=== PATIENT | female | born 1930 | race Caucasian/White ===

== ENCOUNTER 2017-05-24 21:32 | Emergency (ER) | payer MEDICARE, OTHER ==
[~2017-05-24] VITALS: Ht 162.6 cm; Wt 65.0 kg
[2017-05-24 21:57] VITALS: BP 136/71; PULSE 78; RESP 16; TEMP 98.5; O2SAT 99
--- NOTE | 2017-05-24 22:14 | PD ---
HPI Chief Complaint: Psychiatric Symptoms Time Seen by Provider: 22:10 Travel History International Travel<30 days: No Contact w/Intl Traveler<30days: No Traveled to known affect area: No History of Present Illness HPI Patient comes in under [place] act by police after reportedly running away from home, becoming combative and stating that she just wanted to . Patient has a history of dementia denies any complaints or concerns at this time. Patient' s caregivers at bedside currently and reports that they had to use a different caregiver as her normal caregiver had to check on patient's who is in a different hospital with [facility]. Caregiver states patient apparently became confused and combative with the replacement caregiver who then called the police. Reports patient is at her baseline currently. Denies anything making symptoms better or worse, caregiver feels the patient having an unknown caregiver may have caused this behavior. PFSH Past Medical History Alzheimer's Disease: Yes ?: Not Social History Alcohol Use: No Tobacco Use: No Substance Use: No Allergies-Medications (Allergen,Severity, Reaction): Coded Allergies: Penicillin (Verified Allergy, Unknown, 05/24/17) Reported Meds & Prescriptions Reported Meds & Active Scripts Active Reported Namzaric (Memantine-Donepezil) 28-10 Mg Cap 1 Cap PO HS Review of Systems Except as stated in HPI: all other systems reviewed are Neg Physical Exam Narrative GENERAL: Well-developed, well nourished, in no acute distress, and non-ill appearing. SKIN: Focused skin assessment warm and dry. HEAD: Atraumatic. Normocephalic. EYES: Pupils equal and round. EOMI. No scleral icterus. No injection or drainage. ENT: No nasal bleeding or discharge. Mucous membranes pink and moist. NECK: Trachea midline. Supple. No nuclear rigidity. CARDIOVASCULAR: Regular rate and rhythm. Grade 1/6 murmur appreciated. RESPIRATORY: No accessory muscle use. No respiratory distress. Clear to auscultation. Breath sounds equal bilaterally. GASTROINTESTINAL: Abdomen soft, non-tender, nondistended, and no guarding. Hepatic and splenic margins not palpable. No pulsatile mass. MUSCULOSKELETAL: No obvious deformities. No clubbing. No cyanosis. No edema. Full range of motion. NEUROLOGICAL: Awake and alert. No obvious cranial nerve deficits. Motor grossly within normal limits. Normal speech. PSYCHIATRIC: Appropriate mood and affect; insight and judgment normal. Data Data Last Documented VS Vital Signs Date Time Temp Pulse Resp B/P Pulse Ox O2 Delivery O2 Flow Rate FiO2 05/24/17 23:47 78 16 121/52 99 05/24/17 21:57 98.5 Orders Complete Blood Count With Diff (05/24/17 22:09) Comprehensive Metabolic Panel (05/24/17 22:09) Urinalysis - C+S If Indicated (05/24/17 22:09) Drug Screen, Random Urine (05/24/17 22:09) Labs Laboratory Tests Test 05/24/17 05/24/17 22:25 22:33 Urine Color YELLOW Urine Turbidity CLEAR Urine pH 6.5 Urine Specific [place] 1.014 Urine Protein TRACE mg/dL Urine Glucose (UA) NEG mg/dL Urine Ketones NEG mg/dL Urine Occult Blood NEG Urine Nitrite NEG Urine Bilirubin NEG Urine Urobilinogen LESS THAN 2.0 MG/DL Urine Leukocyte Esterase MOD Urine RBC 1 /hpf Urine WBC 3 /hpf Urine Squamous Epithelial 1 /hpf Cells Urine Bacteria RARE /hpf Urine Hyaline Casts 1 /lpf Urine Mucus FEW /lpf Microscopic Urinalysis Comment CULT NOT INDICATED Urine Opiates Screen NEG Urine Barbiturates Screen NEG Urine Amphetamines Screen NEG Urine Benzodiazepines Screen NEG Urine Cocaine Screen NEG Urine Cannabinoids Screen NEG White Blood Count 9.3 TH/MM3 Red Blood Count 4.95 MIL/MM3 Hemoglobin 14.4 GM/DL Hematocrit 43.5 % Mean Corpuscular Volume 87.9 FL Mean Corpuscular Hemoglobin 29.0 PG Mean Corpuscular Hemoglobin 33.0 % Concent Red Cell Distribution Width 14.1 % Platelet Count 196 TH/MM3 Mean Platelet Volume 7.7 FL Neutrophils (%) (Auto) 74.6 % Lymphocytes (%) (Auto) 18.4 % Monocytes (%) (Auto) 5.7 % Eosinophils (%) (Auto) 0.4 % Basophils (%) (Auto) 0.9 % Neutrophils # (Auto) 6.9 TH/MM3 Lymphocytes # (Auto) 1.7 TH/MM3 Monocytes # (Auto) 0.5 TH/MM3 Eosinophils # (Auto) 0.0 TH/MM3 Basophils # (Auto) 0.1 TH/MM3 CBC Comment DIFF FINAL Differential Comment Sodium Level 141 MEQ/L Potassium Level 3.5 MEQ/L Chloride Level 104 MEQ/L Carbon Dioxide Level 28.8 MEQ/L Anion Gap 8 MEQ/L Blood Urea Nitrogen 13 MG/DL Creatinine 1.14 MG/DL Estimat Glomerular Filtration 45 ML/MIN Rate Random Glucose 97 MG/DL Calcium Level 8.6 MG/DL Total Bilirubin 0.6 MG/DL Aspartate Amino Transf 24 U/L (AST/SGOT) Alanine Aminotransferase 24 U/L (ALT/SGPT) Alkaline Phosphatase 58 U/L Total Protein 6.9 GM/DL Albumin 3.4 GM/DL MDM Medical Decision Making Medical Screen Exam Complete: Yes Emergency Medical Condition: Yes Differential Diagnosis Homicidal, suicidal, dementia, electrolyte abnormality, UTI, other Narrative Course Patient in no obvious distress upon re-evaluation. All pertinent laboratory result(s) discussed with patient's caregiver. Patient was seen and examined by Dr. Arroyo who lifted the Barragan act. Any questions/concerns in reference to patient diagnosis/condition discussed and clarified prior to patient's discharge. Reinforced sheer importance of close follow up with patient's primary physician or primary care clinic. Instructed patient to return to ED immediately, if symptoms return/worsen. Pt caregiver showed understanding of above instructions. Further instructions and recommendations were detailed in discharge paperwork. Pt ambulated without difficulty out of ED at discharge. Diagnosis Primary Impression: Alzheimer disease Qualified Code: G30.8 - Alzheimer's dementia with behavioral disturbance, unspecified timing of dementia onset Patient Instructions: Alzheimer Disease (GEN), General Instructions Additional Instructions: Follow-up with your primary care physician next week for reevaluation. Return to the emergency department if symptoms get worse. Disposition: 01 DISCHARGE HOME Condition: Stable Percy Pretty May 24, 2017 22:14
[2017-05-24] MEDS ORDERED: MEMA1CAP2 PO (22:26)
[2017-05-24 22:49] LABS: AUTOMATED NEUTROPHIL # 6.9 TH/MM3 (1.8-7.7); BASOPHIL # 0.1 TH/MM3 (0-0.2); BASOPHIL % 0.9 % (0.0-2.0); EOSINOPHIL % 0.4 % (0.0-4.0); HEMATOCRIT 43.5 % (35.0-46.0); HEMO FLAGS DIFF FINAL; LYMPH % 18.4 % (9.0-44.0); LYMPHOCYTE # 1.7 TH/MM3 (1.0-4.8); MEAN CELL VOLUME 87.9 FL (80.0-100.0); MONO % 5.7 % (0.0-8.0); NEUT % 74.6 % (16.0-70.0); PLATELET COUNT 196 TH/MM3 (150-450); RED BLOOD COUNT 4.95 MIL/MM3 (4.00-5.30); RED CELL DISTRIBUTION WIDTH 14.1 % (11.6-17.2); WHITE BLOOD COUNT 9.3 TH/MM3 (4.0-11.0)
[2017-05-24 23:04] LABS: BACTERIA, URINE RARE /hpf; BLOOD, URINE NEG (NEG); COMMENT (UR) CULT NOT INDICATED; CULTURE IF INDICATED CULT NOT INDICATED; GLUCOSE,URINE NEG (NEG); HYALINE CAST, URINE 1 /lpf (RARE); KETONE, URINE NEG (NEG); MUCUS URINE FEW /lpf (OCC); NITRITE,URINE NEG (NEG); PH, URINE 6.5 (5.0-8.5); SQUAMOUS EPITHELIAL CELL URINE 1 /hpf (0-5); URINE COLOR YELLOW (YELLW/STRAW)
[2017-05-24 23:12] LABS: AMPHETAMINE, URINE NEG (NEG); BARBITURATES, URINE NEG (NEG); COCAINE, URINE NEG (NEG)
[2017-05-24 23:27] LABS: ALT (GPT) 24 U/L (10-53); ANION GAP 8 MEQ/L (5-15); AST (GOT) 24 U/L (15-37); BICARBONATE 28.8 MEQ/L (21.0-32.0); BLOOD UREA NITROGEN 13 MG/DL (7-18); CHLORIDE 104 MEQ/L (98-107); GLOMERULAR FILTRATION RATE 45 ML/MIN (>89); POTASSIUM 3.5 MEQ/L (3.5-5.1); SODIUM (NA) 141 MEQ/L (136-145)
[2017-05-24 23:29] LABS: ALKALINE PHOSPHATASE 58 U/L (45-117); TOTAL BILIRUBIN ADULT 0.6 MG/DL (0.2-1.0)
--- NOTE | 2017-05-24 23:30 | PD ---
Physical Exam Narrative I, Dr. Arroyo, have reviewed the advance practice practitioner's documentation and am in agreement, met with the patient face to face, made the diagnosis, and the medical decision making was done by me. *My assessment and Findings: Dementia vs. delirium 86yo F with history of dementia was brought in under Barragan Act because she had escaped out of the garage and made statement such as "Just let me go so I can ". Upon further investigation, I found out that she had a new customer liaison come today because her old customer liaison was with her who is in another hospital with [facility]. Pt is currently with her normal customer liaison who she is familiar with and is calm and cooperative. She states that she wants to go home and does not want to hurt herself or others. Denies any complaints. Her routine customer liaison is here with her and states she is at her normal mental status. Labs reviewed, no leukocytosis. CMP unremarkable. UA negative. Utox negative. My physical exam is normal. Pt denies any suicidal ideation or homicidal ideation. There was a reason for patient to become agitated today since she had a new customer liaison that she was unfamiliar with. I believe that it would be detrimental to keep the patient overnight in a unfamiliar place and since she has her normal customer liaison with her, she will be better off at home. Will lift barragan act. Data Data Last Documented VS Vital Signs Date Time Temp Pulse Resp B/P Pulse Ox O2 Delivery O2 Flow Rate FiO2 05/24/17 22:00 20 05/24/17 21:57 98.5 78 136/71 99 Orders Complete Blood Count With Diff (05/24/17 22:09) Comprehensive Metabolic Panel (05/24/17 22:09) Urinalysis - C+S If Indicated (05/24/17 22:09) Drug Screen, Random Urine (05/24/17 22:09) Labs Laboratory Tests Test 05/24/17 05/24/17 22:25 22:33 Urine Color YELLOW Urine Turbidity CLEAR Urine pH 6.5 Urine Specific [place] 1.014 Urine Protein TRACE mg/dL Urine Glucose (UA) NEG mg/dL Urine Ketones NEG mg/dL Urine Occult Blood NEG Urine Nitrite NEG Urine Bilirubin NEG Urine Urobilinogen LESS THAN 2.0 MG/DL Urine Leukocyte Esterase MOD Urine RBC 1 /hpf Urine WBC 3 /hpf Urine Squamous Epithelial 1 /hpf Cells Urine Bacteria RARE /hpf Urine Hyaline Casts 1 /lpf Urine Mucus FEW /lpf Microscopic Urinalysis Comment CULT NOT INDICATED Urine Opiates Screen NEG Urine Barbiturates Screen NEG Urine Amphetamines Screen NEG Urine Benzodiazepines Screen NEG Urine Cocaine Screen NEG Urine Cannabinoids Screen NEG White Blood Count 9.3 TH/MM3 Red Blood Count 4.95 MIL/MM3 Hemoglobin 14.4 GM/DL Hematocrit 43.5 % Mean Corpuscular Volume 87.9 FL Mean Corpuscular Hemoglobin 29.0 PG Mean Corpuscular Hemoglobin 33.0 % Concent Red Cell Distribution Width 14.1 % Platelet Count 196 TH/MM3 Mean Platelet Volume 7.7 FL Neutrophils (%) (Auto) 74.6 % Lymphocytes (%) (Auto) 18.4 % Monocytes (%) (Auto) 5.7 % Eosinophils (%) (Auto) 0.4 % Basophils (%) (Auto) 0.9 % Neutrophils # (Auto) 6.9 TH/MM3 Lymphocytes # (Auto) 1.7 TH/MM3 Monocytes # (Auto) 0.5 TH/MM3 Eosinophils # (Auto) 0.0 TH/MM3 Basophils # (Auto) 0.1 TH/MM3 CBC Comment DIFF FINAL Differential Comment Sodium Level 141 MEQ/L Potassium Level 3.5 MEQ/L Chloride Level 104 MEQ/L Carbon Dioxide Level 28.8 MEQ/L Anion Gap 8 MEQ/L Blood Urea Nitrogen 13 MG/DL Creatinine 1.14 MG/DL Estimat Glomerular Filtration 45 ML/MIN Rate Random Glucose 97 MG/DL Calcium Level 8.6 MG/DL Total Bilirubin 0.6 MG/DL Aspartate Amino Transf 24 U/L (AST/SGOT) Alanine Aminotransferase 24 U/L (ALT/SGPT) Alkaline Phosphatase 58 U/L Total Protein 6.9 GM/DL Albumin 3.4 GM/DL [facility] Supervised Visit with CHERY: Yes Diagnosis Primary Impression: Dementia Qualified Code: F03.91 - Dementia with behavioral disturbance, unspecified dementia type Darline Arroyo DO May 24, 2017 23:30
[2017-05-24 23:47] VITALS: BP 121/52
== END 2017-05-25 00:23 | disposition home or self-care (01) ==
LOC: NEPD 21:32
DX: F02.81 Dementia in other diseases classified elsewhere, unspecified severity, with behavioral disturbance (principal); G30.9 Alzheimer's disease, unspecified; Z88.0 Allergy status to penicillin
CPT/HCPCS: 80053; 80307; 81001; 85025; 99283

== ENCOUNTER 2017-10-15 09:48 | Inpatient (IN) | payer MEDICARE, OTHER ==
[~2017-10-15] VITALS: Ht 167.6 cm; Wt 56.6 kg
[~2017-10-15 09:48] MED LIST: MEMA1CAP2 PO
[2017-10-15 09:57] VITALS: BP 148/66; PULSE 69; RESP 20; TEMP 98.6; O2SAT 99
[2017-10-15 10:37] LABS: BASOPHIL % 0.5 % (0.0-2.0); EOSINOPHIL # 0.1 TH/MM3 (0-0.4); EOSINOPHIL % 0.9 % (0.0-4.0); HEMATOCRIT 43.1 % (35.0-46.0); HEMOGLOBIN 14.5 GM/DL (11.6-15.3); LYMPH % 25.7 % (9.0-44.0); LYMPHOCYTE # 1.9 TH/MM3 (1.0-4.8); MEAN CELL VOLUME 88.8 FL (80.0-100.0); MEAN CORPUSCULAR HEMOGLOBIN 29.9 PG (27.0-34.0); MEAN CORPUSCULAR HGB CONC 33.6 % (32.0-36.0); MEAN PLATELET VOLUME 8.5 FL (7.0-11.0); MONO % 4.7 % (0.0-8.0); MONOCYTE # 0.3 TH/MM3 (0-0.9); NEUT % 68.2 % (16.0-70.0); PLATELET COUNT 171 TH/MM3 (150-450); RED BLOOD COUNT 4.86 MIL/MM3 (4.00-5.30); RED CELL DISTRIBUTION WIDTH 14.1 % (11.6-17.2); WHITE BLOOD COUNT 7.3 TH/MM3 (4.0-11.0)
[2017-10-15 10:53] LABS: BLOOD UREA NITROGEN 17 MG/DL (7-18); CHLORIDE 108 MEQ/L (98-107); CREATININE 1.02 MG/DL (0.50-1.00); GLOMERULAR FILTRATION RATE 51 ML/MIN (>89); GLUCOSE,RANDOM 101 MG/DL (74-106); SODIUM (NA) 140 MEQ/L (136-145)
--- NOTE | 2017-10-15 12:09 | PD ---
HPI Chief Complaint: Psychiatric Symptoms Time Seen by Provider: 09:57 Travel History International Travel<30 days: No Contact w/Intl Traveler<30days: No Traveled to known affect area: No History of Present Illness HPI The patient is 87 years old. She arrives a Barr[place] act from [place]. She was evidently combative with visiting home nurses. The police were called to bring her to the ER as they felt that she was in imminent risk to her own safety. In the ER the patient has no complaints and states that she "did nothing wrong." The care provider, power of traffic law attorney, arrives and explains that the patient has been "escaping" from her house. Evidently she was walking [place] highway [place] one point. She has been following with a neurologist and a primary care provider. Up until recently the family has been refusing antipsychotics. The patient has been noncompliant antipsychotics for the last 2 - 3 days. PFSH Past Medical History Medical History: Unable to Obtain Alzheimer's Disease: Yes Dementia: Yes Diminished Hearing: No Tetanus Vaccination: Unknown ?: Not Past Surgical History Surgical History: Unable to Obtain Social History Alcohol Use: No Tobacco Use: No Substance Use: No Allergies-Medications (Allergen,Severity, Reaction): Coded Allergies: penicillin G (Unverified Allergy, Unknown, 10/15/17) Reported Meds & Prescriptions Reported Meds & Active Scripts Active Reported Namzaric (Memantine-Donepezil) 28-10 Mg Cap 1 Cap PO HS Review of Systems Except as stated in HPI: all other systems reviewed are Neg General / Constitutional: No: Fever Cardiovascular: No: Chest Pain or Discomfort Physical Exam Narrative GENERAL: GENERAL: The patient is 87 years old. She is well-nourished well- developed, mildly agitated SKIN: Focused skin assessment warm/dry. HEAD: Atraumatic. Normocephalic. EYES: Pupils equal and round. No scleral icterus. No injection or drainage. ENT: No nasal bleeding or discharge. Mucous membranes pink and moist. NECK: Trachea midline. No JVD. CARDIOVASCULAR: There is no arrhythmia. The rate is approximately 70 RESPIRATORY: No accessory muscle use. Clear to auscultation. Breath sounds equal bilaterally. GASTROINTESTINAL: Abdomen soft, non-tender, nondistended. Hepatic and splenic margins not palpable. MUSCULOSKELETAL: No obvious deformities. No clubbing. No cyanosis. No edema. NEUROLOGICAL: Recent memory is impaired. She states she does not know where she is. Cranial nerves are normal. The patient is ambulatory. PSYCHIATRIC: Somewhat uncooperative. Denies arm attention towards herself or others. Data Data Last Documented VS Vital Signs Date Time Temp Pulse Resp B/P (MAP) Pulse Ox O2 Delivery O2 Flow Rate FiO2 10/15/17 09:57 98.6 69 20 148/66 (93) 99 Orders Orders Complete Blood Count With Diff (10/15/17 10:12) Basic Metabolic Panel (Bmp) (10/15/17 10:12) Urinalysis - C+S If Indicated (10/15/17 10:12) Drug Screen, Random Urine (10/15/17 10:12) Alcohol (Ethanol) (10/15/17 10:12) Psych Screen (10/15/17 12:18) Lorazepam Inj (Ativan Inj) (10/15/17 12:30) Labs Laboratory Tests Test 10/15/17 10:10 White Blood Count 7.3 TH/MM3 Red Blood Count 4.86 MIL/MM3 Hemoglobin 14.5 GM/DL Hematocrit 43.1 % Mean Corpuscular Volume 88.8 FL Mean Corpuscular Hemoglobin 29.9 PG Mean Corpuscular Hemoglobin Concent 33.6 % Red Cell Distribution Width 14.1 % Platelet Count 171 TH/MM3 Mean Platelet Volume 8.5 FL Neutrophils (%) (Auto) 68.2 % Lymphocytes (%) (Auto) 25.7 % Monocytes (%) (Auto) 4.7 % Eosinophils (%) (Auto) 0.9 % Basophils (%) (Auto) 0.5 % Neutrophils # (Auto) 5.0 TH/MM3 Lymphocytes # (Auto) 1.9 TH/MM3 Monocytes # (Auto) 0.3 TH/MM3 Eosinophils # (Auto) 0.1 TH/MM3 Basophils # (Auto) 0.0 TH/MM3 CBC Comment DIFF FINAL Differential Comment Blood Urea Nitrogen 17 MG/DL Creatinine 1.02 MG/DL Random Glucose 101 MG/DL Calcium Level 9.0 MG/DL Sodium Level 140 MEQ/L Potassium Level 4.5 MEQ/L Chloride Level 108 MEQ/L Carbon Dioxide Level 26.0 MEQ/L Anion Gap 6 MEQ/L Estimat Glomerular Filtration Rate 51 ML/MIN Ethyl Alcohol Level LESS THAN 3 MG/DL MDM Medical Decision Making Medical Screen Exam Complete: Yes Emergency Medical Condition: Yes Medical Record Reviewed: Yes Differential Diagnosis Altered mental status/psychosis due to infection/environmental exposure/ metabolic abnormality, polypharmacy, alcohol abuse/intoxication, illicit or prescribed drug abuse, malingering/secondary gain, non-organic psychiatric disease Narrative Course CBC & BMP Diagram 10/15/17 10:10 Calcium Level 9.0 The patient went to the bathroom with a urinalysis specimen container however did not provide a specimen. At the workup thus far does not show any obvious medical reason for the patient' s agitation. She is known to have dementia. According to the power of traffic law attorney the patient has been noncompliant with Seroquel for the last 3 days. Evidently she did benefit from taking it up until a few days prior. At about 12 PM she became very agitated left her room multiple times and began screaming. IM Ativan ordered. J Pod disposition appreciated. I will be or a [facility] Pod CHERY will be available to medical interventions as needed. Diagnosis Primary Impression: Alzheimer disease Qualified Codes: G30.9 - Alzheimer's disease, unspecified; F02.81 - Dementia in other diseases classified elsewhere with behavioral disturbance Additional Impression: Agitation requiring sedation protocol Admitting Information Admitting Physician Requests: Observation Watson Thacker MD Oct 15, 2017 12:09
[2017-10-15] MEDS ORDERED: LORazepam 2 MG/ML VIAL IM ONE (12:30)
[2017-10-15 18:39] VITALS: BP 159/70; PULSE 70; RESP 18; O2SAT 97
[2017-10-15 20:57] LABS: BACTERIA, URINE OCC /hpf; BILIRUBIN, URINE NEG (NEG); BLOOD, URINE NEG (NEG); GLUCOSE,URINE NEG (NEG); KETONE, URINE NEG (NEG); MUCUS URINE FEW /lpf (OCC); NITRITE,URINE NEG (NEG); PH, URINE 6.5 (5.0-8.5); SQUAMOUS EPITHELIAL CELL URINE 2 /hpf (0-5); TRANSITIONAL EPI CELLS, URINE 1 /hpf; URINE COLOR YELLOW (YELLW/STRAW); URINE LEUKOCYTE ESTERASE LARGE (NEG)
[2017-10-15] MEDS ORDERED: MACR100C2 PO (21:18)
--- NOTE | 2017-10-15 21:25 | PD ---
Data Data Last Documented VS Vital Signs Date Time Temp Pulse Resp B/P (MAP) Pulse Ox O2 Delivery O2 Flow Rate FiO2 10/15/17 18:39 70 18 159/70 (99) 97 Room Air 10/15/17 09:57 98.6 Orders Orders Complete Blood Count With Diff (10/15/17 10:12) Basic Metabolic Panel (Bmp) (10/15/17 10:12) Urinalysis - C+S If Indicated (10/15/17 10:12) Drug Screen, Random Urine (10/15/17 10:12) Alcohol (Ethanol) (10/15/17 10:12) Psych Screen (10/15/17 12:18) Lorazepam Inj (Ativan Inj) (10/15/17 12:30) Diet Regular Basic (10/15/17 Dinner) Urine Culture (10/15/17 18:46) Nitrofurantoin Monohyd Macrocr (Macrobid (10/16/17 09:00) Nitrofurantoin Monohyd Macrocr (Macrobid (10/15/17 21:30) Labs Laboratory Tests Test 10/15/17 10:10 10/15/17 18:46 White Blood Count 7.3 TH/MM3 Red Blood Count 4.86 MIL/MM3 Hemoglobin 14.5 GM/DL Hematocrit 43.1 % Mean Corpuscular Volume 88.8 FL Mean Corpuscular Hemoglobin 29.9 PG Mean Corpuscular Hemoglobin Concent 33.6 % Red Cell Distribution Width 14.1 % Platelet Count 171 TH/MM3 Mean Platelet Volume 8.5 FL Neutrophils (%) (Auto) 68.2 % Lymphocytes (%) (Auto) 25.7 % Monocytes (%) (Auto) 4.7 % Eosinophils (%) (Auto) 0.9 % Basophils (%) (Auto) 0.5 % Neutrophils # (Auto) 5.0 TH/MM3 Lymphocytes # (Auto) 1.9 TH/MM3 Monocytes # (Auto) 0.3 TH/MM3 Eosinophils # (Auto) 0.1 TH/MM3 Basophils # (Auto) 0.0 TH/MM3 CBC Comment DIFF FINAL Differential Comment Blood Urea Nitrogen 17 MG/DL Creatinine 1.02 MG/DL Random Glucose 101 MG/DL Calcium Level 9.0 MG/DL Sodium Level 140 MEQ/L Potassium Level 4.5 MEQ/L Chloride Level 108 MEQ/L Carbon Dioxide Level 26.0 MEQ/L Anion Gap 6 MEQ/L Estimat Glomerular Filtration Rate 51 ML/MIN Ethyl Alcohol Level LESS THAN 3 MG/DL Urine Color YELLOW Urine Turbidity CLEAR Urine pH 6.5 Urine Specific [place] 1.020 Urine Protein NEG mg/dL Urine Glucose (UA) NEG mg/dL Urine Ketones NEG mg/dL Urine Occult Blood NEG Urine Nitrite NEG Urine Bilirubin NEG Urine Urobilinogen LESS THAN 2.0 MG/DL Urine Leukocyte Esterase LARGE Urine RBC 1 /hpf Urine WBC 17 /hpf Urine Squamous Epithelial Cells 2 /hpf Urine Transitional Epithelial Cells 1 /hpf Urine Bacteria OCC /hpf Urine Mucus FEW /lpf Microscopic Urinalysis Comment CULTURE INDICATED Urine Opiates Screen NEG Urine Barbiturates Screen NEG Urine Amphetamines Screen NEG Urine Benzodiazepines Screen NEG Urine Cocaine Screen NEG Urine Cannabinoids Screen NEG MDM Medical Record Reviewed: Yes Supervised Visit with CHERY: No Narrative Course See previous providers notes. I was called by the nurse to follow-up in this patient's urinalysis which is suspicious for UTI. The patient will be started on Macrobid. Diagnosis Primary Impression: Alzheimer disease Qualified Codes: G30.9 - Alzheimer's disease, unspecified; F02.81 - Dementia in other diseases classified elsewhere with behavioral disturbance Additional Impression: Agitation requiring sedation protocol Scripts Nitrofurantoin Monohydrate Macrocrystals (Macrobid) 100 Mg Capsule 100 MG PO BID for Infection for 7 Days, #14 CAP 0 Refills Prov: Watson Thacker MD 10/15/17 Johny Harmon Oct 15, 2017 21:25
[2017-10-15] MEDS ORDERED: NITROFURANTOIN MONOHYD MACROCR 100 MG CAP PO ONE (21:30)
[2017-10-15] MEDS ORDERED: ALUMINUM/MAGNESIUM/SIMETH 30 ML CUP PO PRN (22:30)
[2017-10-15] MEDS ORDERED: LORazepam 0.5 MG TAB age > 65 yrs PO PRN (22:30)
[2017-10-15] MEDS ORDERED: LORazepam 2 MG/ML VIAL - age > 65 yrs IM PRN (22:30)
[2017-10-15] MEDS ORDERED: diphenhydrAMINE HCL 50 MG/ML VIAL - HS PRN IM (22:30)
[2017-10-15] MEDS ORDERED: MAGNESIUM HYDROXIDE SUSP 30 ML CUP PO PRN (22:30)
[2017-10-15 23:10] VITALS: BP 150/65; PULSE 71; RESP 17; TEMP 97.8; O2SAT 98
[2017-10-16 05:55] VITALS: BP 96/48; PULSE 75; RESP 17; TEMP 98; O2SAT 98
[2017-10-16] MEDS: NITROFURANTOIN MONOHYD MACROCR 100 MG CAP PO SCH ×4 (08:02→20:47)
[2017-10-16] MEDS ORDERED: NITROFURANTOIN MONOHYD MACROCR 100 MG CAP PO SCH ×2 (09:00)
--- NOTE | 2017-10-16 10:00 | HHI.HP ---
Provisional Diagnosis Admission Date Oct 15, 2017 at 22:[address] [place] I. Dementia with behavioral disturbances Certification of Person's Competence To Provide Express and Informed Consent I have personally examined Yasmeen Reed , a person being served at [facility] on, Oct 16, 2017 09:42. Express and informed consent means consent voluntarily given in writing, by a competent person, after sufficient explanation and disclosure of the subject matter involved to enable the person to make a knowing and willful decision without any element of force, fraud, deceit, duress, or other form of constraint or coercion. This person is 18 years of age or older, is not now known to be incompetent to consent to treatment with a guardian advocate, and does not have a health care surrogate or proxy currently making medical treatment decisions. I have found this person to be one of the following: [] Competent to provide express and informed consent, as defined above, for voluntary admission to this facility and is competent to provide express and informed consent for treatment. He/she has the consistent capacity to make well reasoned, willful, and knowing decisions concerning his or her medical or mental health treatment. The person fully and consistently understands the purpose of the admission for examination/placement and is fully capable of personally exercising all rights [place] [x] Incompetent to provide express and informed consent to voluntary admission, and this is incompetent to provide express and informed consent to treatment. The person must be transferred to involuntary status and a petition for a guardian advocate filed with the Circuit Court. [] Refusing to provide express and informed consent to voluntary admission but is competent to provide express and informed consent for treatment. The person must be discharged or transferred to involuntary status. Form shall be completed within 24 hours of a person's arrival at the receiving facility and filed in the clinical record of each person: 1. Admitted on a voluntary basis 2. Permitted to provide express and informed consent to his/her own treatment 3. Allowed to transfer from involuntary to voluntary status 4. Prior to permitting a person to consent to his or her own treatment after having been previously found incompetent to consent to treatment. History of Present Illness Capacity: Lacks Capacity HPI Patient is a 87-year-old woman, domiciled with caregivers, past psychiatric history of Alzheimer's dementia, unknown previous psychiatric consultations suicide attempts or self-injurious behavior but as per chart prior ED visit on 05/2017 for similar presentation who was brought in under [facility] act from [place] stating patient was combative with visiting home nurses and transferred to the inpatient psychiatry for further evaluation and management. As per ED note patient reported no complaints but that the care provider, power of single needle operator, stated the patient has been "escaping" from her house and walking near a highway at one point. It was noted in the chart that the family had written refusing antipsychotics until recently and had not been taking medications for the past 23 days. Patient also was provided ETO of Ativan IM in the ER and was recommended to start Macrobid 100 mg by mouth twice a day for 7 days for suspicion of UTI. Patient was found in the hallway attempting to exit the unit, banging on doorways any screaming as per nursing report. Patient was provided with ETO of 0.5 mg of Ativan IM and recent was redirected back to her room and was able to lay down. Patient noted to be alert and oriented only to person, noted to have nonsensical statements stating that "there is nothing here, they're all rotten". Patient continued to be irritable but appeared that medication was titrated to effect and was able to lay down and go to sleep. Prior to falling asleep if she was able to take first dose of Macrobid for UTI. As per chart patient was also on Memantine- Donepezil (28-10mg) by mouth at bedtime. Family psychiatric history: Unknown as patient is unable to provide information due to her current agitation as well as her cognitive deficits Past psychiatric history: Previous psychiatric diagnosis of dementia Alzheimer' s type, unknown if previous psychiatric hospitalizations, suicide subversive fidgety behavior. Patient was seen previously in the ER on May 2017 for similar presentation. Substance use history: Unknown as patient is unable to provide information due to her current agitation as well as her cognitive deficits Past medical history: Recent diagnosis of UTI as per ED Allergies: Penicillin G Social history: Patient domiciled with caregivers but unknown if family or friends live with her. Patient has power of single needle operatorPrema [phone] as per chart. Review of Systems Except as stated in HPI: all other systems reviewed are Neg Past Psych History Psychological trauma history Unknown as patient is unable to provide information due to her current agitation as well as her cognitive deficits Violence risk - others (6 mos) Elevated due to [place] act stating patient was combative with caregivers Violence risk - self (6 mos) Elevated due to patient recently reportedly walking near [place] Substance Abuse History Drugs/Alcohol past 12 months Unknown as patient is unable to provide information due to her current agitation as well as her cognitive deficits Past Family Social History Coded Allergies: penicillin G (Unverified Allergy, Unknown, 10/15/17) Active Scripts Nitrofurantoin Monohydrate Macrocrystals (Macrobid) 100 Mg Capsule, 100 MG PO BID for Infection for 7 Days, #14 CAP 0 Refills Prov:Watson Thacker MD 10/15/17 Reported Medications Memantine-Donepezil (Namzaric) 28-10 Mg Cap, 1 CAP PO HS for Alzheimer Dementia , #30 CAP 0 Refills 05/24/17 Current Medications Medications (Trade) Dose Ordered Sig/Bisi Route Start Time Stop Time Status Last Admin (Ativan) 0.5 mg Q12H PRN PO 10/15/17 22:30 (Ativan Inj) 0.5 mg Q12H PRN IM 10/15/17 22:30 10/16/17 08:18 (Benadryl) 50 mg HS PRN PO 10/15/17 22:30 (Benadryl Inj) 50 mg HS PRN IM 10/15/17 22:30 (Tylenol) 650 mg Q4H PRN PO 10/15/17 22:30 (Milk Of Magnesia Liq) 30 ml DAILY PRN PO 10/15/17 22:30 (Mag-Al Plus Susp Liq) 30 ml Q6H PRN PO 10/15/17 22:30 (Macrobid) 100 mg BID PO 10/16/17 09:00 10/16/17 08:33 Patient Own Medication PT OWN MED: NAMZA... HS PO 10/16/17 21:00 (Macrobid) 100 mg BID PO 10/16/17 09:00 UNV Non-Formulary Medication 1 cap HS PO 10/16/17 21:00 UNV (SEROquel) 12.5 mg BID PO 10/16/17 21:00 UNV Family Psych History Unknown as patient is unable to provide information due to her current agitation as well as her cognitive deficits Social History Patient domiciled with caregivers but unknown if family or friends live with her. Patient has power of single needle operator, Prema Otto [phone] as per chart. Patient's Strengths (min. 2) Verbal and communicative Physical Exam Patient noted to be agitated, no gross motor abnormalities, no tremors or EPS, unable to further assess at this time due to agitation. Vital Signs Vital Signs Date Time Temp Pulse Resp B/P (MAP) Pulse Ox O2 Delivery O2 Flow Rate FiO2 10/16/17 05:55 98.0 75 17 96/48 (64) 98 10/15/17 18:39 Room Air I/O 10/16/17 10/16/17 10/17/17 08:00 16:00 00:00 Intake Total 0 ml Balance 0 ml Lab Results Test 10/15/17 10:10 10/15/17 18:46 White Blood Count 7.3 TH/MM3 Red Blood Count 4.86 MIL/MM3 Hemoglobin 14.5 GM/DL Hematocrit 43.1 % Mean Corpuscular Volume 88.8 FL Mean Corpuscular Hemoglobin 29.9 PG Mean Corpuscular Hemoglobin Concent 33.6 % Red Cell Distribution Width 14.1 % Platelet Count 171 TH/MM3 Mean Platelet Volume 8.5 FL Neutrophils (%) (Auto) 68.2 % Lymphocytes (%) (Auto) 25.7 % Monocytes (%) (Auto) 4.7 % Eosinophils (%) (Auto) 0.9 % Basophils (%) (Auto) 0.5 % Neutrophils # (Auto) 5.0 TH/MM3 Lymphocytes # (Auto) 1.9 TH/MM3 Monocytes # (Auto) 0.3 TH/MM3 Eosinophils # (Auto) 0.1 TH/MM3 Basophils # (Auto) 0.0 TH/MM3 CBC Comment DIFF FINAL Differential Comment Blood Urea Nitrogen 17 MG/DL Creatinine 1.02 MG/DL Random Glucose 101 MG/DL Calcium Level 9.0 MG/DL Sodium Level 140 MEQ/L Potassium Level 4.5 MEQ/L Chloride Level 108 MEQ/L Carbon Dioxide Level 26.0 MEQ/L Anion Gap 6 MEQ/L Estimat Glomerular Filtration Rate 51 ML/MIN Ethyl Alcohol Level LESS THAN 3 MG/DL Urine Color YELLOW Urine Turbidity CLEAR Urine pH 6.5 Urine Specific [place] 1.020 Urine Protein NEG mg/dL Urine Glucose (UA) NEG mg/dL Urine Ketones NEG mg/dL Urine Occult Blood NEG Urine Nitrite NEG Urine Bilirubin NEG Urine Urobilinogen LESS THAN 2.0 MG/DL Urine Leukocyte Esterase LARGE Urine RBC 1 /hpf Urine WBC 17 /hpf Urine Squamous Epithelial Cells 2 /hpf Urine Transitional Epithelial Cells 1 /hpf Urine Bacteria OCC /hpf Urine Mucus FEW /lpf Microscopic Urinalysis Comment CULTURE INDICATED Urine Opiates Screen NEG Urine Barbiturates Screen NEG Urine Amphetamines Screen NEG Urine Benzodiazepines Screen NEG Urine Cocaine Screen NEG Urine Cannabinoids Screen NEG Date/Time Source Procedure Growth Status 10/15/17 18:46 Urine Random Urine Urine Culture Pending Received Mental Status Examination Appearance: Appropriate Consciousness: Alert Orientation: Person Speech: Incoherent (at times) Language: Other (clang associations) Fund of Knowledge: Inadequate Attention and Concentration: Inadequate Memory: Impaired Mood: Angry, Other (agitated) Affect: Irritable, Other (agitated) Thought Process & Associations: Linear Thought Content: Preoccupations Hallucination Type: Other (unable to assess at this time due to agitation) Delusion Type: Other (unable to assess at this time due to agitation) Suicidal Ideation: No Suicidal Plan: No Suicidal Intention: No Homicidal Ideation: No Homicidal Plan: No Homicidal Intention: No Insight: Poor Judgment: Poor Assessment & Plan Problem List: (1) Dementia of Alzheimer's type with behavioral disturbance ICD Codes: G30.9 - Alzheimer's disease, unspecified; F02.81 - Dementia in other diseases classified elsewhere with behavioral disturbance Assessment & Plan Patient is a 87-year-old woman who carries a diagnosis of dementia with prior ER visit due to similar presentation, unknown previous psychiatric hospitalization suicide attempts or self-injurious behavior was brought in under [place] act due to being combative was visiting home nurses as well as [place] patient "escaping" from her home and [place] [address] which patient was admitted to the inpatient psychiatric unit for further evaluation and management. She'll noted to be agitated and required ETO in the ER as well as this morning. We'll start quetiapine 12.5 mg by mouth twice a day, Haldol 1 mg IM every 8 hours when necessary for severe agitation, continue Macrobid 100 mg by mouth twice a day for 7 days for UTI, collateral information pending. Continue to monitor mood and behavior. Recommendations as per primary medical team. Will start petition for involuntary hospitalization, second opinion will be requested. Discharge planning in progress Discharge Planning Patient to return back to her residence with appropriate Healthcare Services to provide appropriate supervision due to patient diagnoses dementia or consideration to penitentiary placement. Shaheen Tee MD Oct 16, 2017 09:59
--- NOTE | 2017-10-16 10:17 | PD.CONS ---
HPI Service [place] [facility] Consult Requested By Primary Care Physician Cristy Perrin MD Diagnoses: History of Present Illness History from care physician notes, nursing staff, reviewing records. Patient is seen in the day room. She looks quite depressed and is not participating in any activities. She looks as though she was quite annoyed that I was asking her questions. She denies any recent symptoms. Denies every questioning stating "I don't know ". He will Review of Systems Except as stated in HPI: all other systems reviewed are Neg Past Family Social History Allergies: Coded Allergies: penicillin G (Unverified Allergy, Unknown, 10/15/17) Past Medical History denies any med conditions Past Surgical History denies any sx Family History unknown Social History denies smoking/ etoh abuse /drug abuse states lives with family Physical Exam Vital Signs Vital Signs Date Time Temp Pulse Resp B/P (MAP) Pulse Ox O2 Delivery O2 Flow Rate FiO2 10/16/17 05:55 98.0 75 17 96/48 (64) 98 10/15/17 23:11 10/15/17 23:10 97.8 71 17 150/65 (93) 98 10/15/17 18:39 70 18 159/70 (99) 97 Room Air Physical Exam GENERAL: This is elderly lady, looks depressed and somewhat angry that she is in dayroom with rest of the patients SKIN: No rashes, ecchymoses or lesions. Cool and dry. HEAD: Atraumatic. Normocephalic. No temporal or scalp tenderness. EYES: . No scleral icterus. No injection or drainage. ENT: Nose without bleeding, purulent drainage or septal hematoma. Airway patent. NECK: Trachea midline. No JVD CARDIOVASCULAR: Regular rate and rhythm without murmurs, gallops, or rubs. RESPIRATORY: Clear to auscultation. Breath sounds equal bilaterally. No wheezes , rales, or rhonchi. GASTROINTESTINAL: Abdomen soft, non-tender, nondistended.. No guarding. MUSCULOSKELETAL: Extremities without clubbing, cyanosis, or edema. No calf tenderness. NEUROLOGICAL: Awake and alert. Motor and sensory grossly within normal limits. Normal speech. Laboratory Laboratory Tests Test 10/15/17 18:46 Urine Color YELLOW Urine Turbidity CLEAR Urine pH 6.5 Urine Specific [place] 1.020 Urine Protein NEG Urine Glucose (UA) NEG Urine Ketones NEG Urine Occult Blood NEG Urine Nitrite NEG Urine Bilirubin NEG Urine Urobilinogen LESS THAN 2.0 Urine Leukocyte Esterase LARGE Urine RBC 1 Urine WBC 17 Urine Squamous Epithelial Cells 2 Urine Transitional Epithelial Cells 1 Urine Bacteria OCC Urine Mucus FEW Microscopic Urinalysis Comment CULTURE INDICATED Urine Opiates Screen NEG Urine Barbiturates Screen NEG Urine Amphetamines Screen NEG Urine Benzodiazepines Screen NEG Urine Cocaine Screen NEG Urine Cannabinoids Screen NEG Date/Time Source Procedure Growth Status 10/15/17 18:46 Urine Random Urine Urine Culture Pending Received Result Diagram: 10/15/17 1010 10/15/17 1010 Assessment and Plan Assessment and Plan Impression: Abnormal UA. Extremely poor historian. Dementia with Alzheimer's type and behavior problems Plan: We'll follow urine culture results. Patient is asymptomatic. However she is a poor historian and answers no to every questioning. She has been afebrile. We will follow her tomorrow and if she can care for further history, we will decide on need of treatment based on the culture results. DVT prophylaxis with Lovenox. Discussed Condition With Patient Vijaya Caraballo MD Oct 16, 2017 10:17
[2017-10-16] MEDS ORDERED: PILL SPLITTER OTHER PRN (12:00)
--- NOTE | 2017-10-16 12:05 | PD.TTN ---
Patient Problems 1. Discharge planning 2. Medication compliance 3. Knowledge deficit 4. Lack of coping skills Progress Toward Goals Provider Present: Dr. Janessa Tee Provider Input: 10/16/17 patient will be assess for treatment needs Nurse(s) Present: JEROME Rinaldi Nurse(s) Input: Patient is agitated, compliant with care Psychiatric Counselors Present: PROSPER He Psych Therapist Input: Patient will be assess for service, POA will be contact and directed to fax POA paperwork Group Spec/RT/OT/HYATT Present: EDMAR Solares Group Spec/RT/OT/HYATT Input: Patient is a new admission Documentation Scribe: PROSPER He Sandra LMHC Oct 16, 2017 12:05
[2017-10-16 13:29] LABS: CHOLESTEROL 256 MG/DL (120-200); TRIGLYCERIDES 116 MG/DL (42-150)
[2017-10-16 13:31] LABS: CHOLESTEROL/ HDL RATIO 2.52 RATIO; HDL CHOLESTEROL 101.2 MG/DL (40.0-60.0); LDL CHOLESTEROL 132 MG/DL (0-99)
--- NOTE | 2017-10-16 14:06 | PD.PSY.CON ---
Provisional Diagnosis Admission Date Oct 15, 2017 at 22:09 [place] I. Dementia with behavioral disturbances History of Present Illness Service Psychiatry Consult Requested By Dr. Randal Tee Reason for Consult Second opinion Primary Care Physician Cristy Perrin MD HPI Patient is a 87-year-old woman, domiciled with caregivers, past psychiatric history of Alzheimer's dementia, unknown previous psychiatric consultations suicide attempts or self-injurious behavior but as per chart prior ED visit on 05/2017 for similar presentation who was brought in under [place] act from [place] stating patient was combative with visiting home nurses and transferred to the inpatient psychiatry for further evaluation and management. As per ED note patient reported no complaints but that the care provider, power of workers compensation attorney, stated the patient has been "escaping" from her house and walking near a highway at one point. It was noted in the chart that the family had written refusing antipsychotics until recently and had not been taking medications for the past 23 days. Patient also was provided ETO of Ativan IM in the ER and was recommended to start Macrobid 100 mg by mouth twice a day for 7 days for suspicion of UTI. Patient was found in the hallway attempting to exit the unit, banging on doorways any screaming as per nursing report. Patient was provided with ETO of 0.5 mg of Ativan IM and recent was redirected back to her room and was able to lay down. Patient noted to be alert and oriented only to person, noted to have nonsensical statements stating that "there is nothing here, they're all rotten". Patient continued to be irritable but appeared that medication was titrated to effect and was able to lay down and go to sleep. Prior to falling asleep if she was able to take first dose of Macrobid for UTI. As per chart patient was also on Memantine- Donepezil (28-10mg) by mouth at bedtime. The patient was seen today for psychiatric evaluation in second opinion. The patient was found wandering in the [place], trying to elope from the unit, very disorganized, restless agitated, difficult to redirect, no answering to my questions. No able to provide any meaningful information for the evaluation. As per nurse in charge and as per conversation with Dr. Tee the patient has been this disorganized and agitated now the whole day and this is the reason the patient needs to be in the hospital for stabilization and safety. Past Family Social History Coded Allergies: penicillin G (Unverified Allergy, Unknown, 10/15/17) Active Scripts Nitrofurantoin Monohydrate Macrocrystals (Macrobid) 100 Mg Capsule, 100 MG PO BID for Infection for 7 Days, #14 CAP 0 Refills Prov:Watson Thacker MD 10/15/17 Reported Medications Memantine-Donepezil (Namzaric) 28-10 Mg Cap, 1 CAP PO HS for Alzheimer Dementia , #30 CAP 0 Refills 05/24/17 Current Medications Medications (Trade) Dose Ordered Sig/Bisi Route Start Time Stop Time Status Last Admin (Benadryl) 50 mg HS PRN PO 10/15/17 22:30 (Benadryl Inj) 50 mg HS PRN IM 10/15/17 22:30 (Tylenol) 650 mg Q4H PRN PO 10/15/17 22:30 (Milk Of Magnesia Liq) 30 ml DAILY PRN PO 10/15/17 22:30 (Mag-Al Plus Susp Liq) 30 ml Q6H PRN PO 10/15/17 22:30 (Macrobid) 100 mg BID PO 10/16/17 09:00 10/16/17 08:33 Patient Own Medication PT OWN MED: NAMZA... HS PO 10/16/17 21:00 (SEROquel) 12.5 mg BID PO 10/16/17 21:00 (Haldol Inj) 1 mg Q8H PRN IM 10/16/17 09:45 (Pill Splitter) 1 ea UNSCH PRN OTHER 10/16/17 12:00 Patient's Strengths (min. 2) Verbal and communicative Physical Exam Vital Signs Vital Signs Date Time Temp Pulse Resp B/P (MAP) Pulse Ox O2 Delivery O2 Flow Rate FiO2 10/16/17 05:55 98.0 75 17 96/48 (64) 98 10/15/17 18:39 Room Air I/O 10/16/17 10/16/17 10/17/17 08:00 16:00 00:00 Intake Total 0 ml Balance 0 ml Lab Results Test 10/15/17 18:46 10/16/17 12:50 Urine Color YELLOW Urine Turbidity CLEAR Urine pH 6.5 Urine Specific [place] 1.020 Urine Protein NEG mg/dL Urine Glucose (UA) NEG mg/dL Urine Ketones NEG mg/dL Urine Occult Blood NEG Urine Nitrite NEG Urine Bilirubin NEG Urine Urobilinogen LESS THAN 2.0 MG/DL Urine Leukocyte Esterase LARGE Urine RBC 1 /hpf Urine WBC 17 /hpf Urine Squamous Epithelial Cells 2 /hpf Urine Transitional Epithelial Cells 1 /hpf Urine Bacteria OCC /hpf Urine Mucus FEW /lpf Microscopic Urinalysis Comment CULTURE INDICATED Urine Opiates Screen NEG Urine Barbiturates Screen NEG Urine Amphetamines Screen NEG Urine Benzodiazepines Screen NEG Urine Cocaine Screen NEG Urine Cannabinoids Screen NEG Triglycerides Level 116 MG/DL Cholesterol Level 256 MG/DL LDL Cholesterol 132 MG/DL HDL Cholesterol 101.2 MG/DL Cholesterol/HDL Ratio 2.52 RATIO Date/Time Source Procedure Growth Status 10/15/17 18:46 Urine Random Urine Urine Culture - Preliminary IMMATURE GROWTH - REINCUBATE Resulted Mental Status Examination Appearance: Appropriate Consciousness: Alert Orientation: Person Speech: Incoherent (at times) Language: Other (clang associations) Fund of Knowledge: Inadequate Attention and Concentration: Inadequate Memory: Impaired Mood: Angry, Other (agitated) Affect: Irritable, Other (agitated) Thought Process & Associations: Linear Thought Content: Preoccupations Hallucination Type: Other (unable to assess at this time due to agitation) Delusion Type: Other (unable to assess at this time due to agitation) Suicidal Ideation: No Suicidal Plan: No Suicidal Intention: No Homicidal Ideation: No Homicidal Plan: No Homicidal Intention: No Insight: Poor Judgment: Poor Assessment & Plan Problem List: (1) Dementia of Alzheimer's type with behavioral disturbance ICD Codes: G30.9 - Alzheimer's disease, unspecified; F02.81 - Dementia in other diseases classified elsewhere with behavioral disturbance Assessment & Plan: I have seen and examined this patient, review of records, discussed with Dr. Tee, and I agree and concur with his assessment and plan. Consult appreciated. Assessment & Plan Estimated LOS: Chris Garsia MD Oct 16, 2017 14:06
[2017-10-16 16:59] LABS: HEMOGLOBIN A1C 5.4 % (4.3-6.0)
[2017-10-16 18:00] VITALS: BP 135/61; PULSE 75; RESP 17; TEMP 98; O2SAT 98
[2017-10-16] MEDS: diphenhydrAMINE HCL 50 MG CAP - HS PRN PO (20:47)
[2017-10-16] MEDS: QUEtiapine FUMARATE 25 MG TAB PO SCH (20:47)
[2017-10-16] MEDS: ACETAMINOPHEN 325 MG TAB PO PRN (20:48)
[2017-10-16] MEDS: NAMZARIC PO SCH (20:49)
[2017-10-16] MEDS ORDERED: NON-FORMULARY DRUG (Memantine-Donepezil (Namzaric) 1 CAP) PO SCH (21:00)
[2017-10-17 06:27] VITALS: BP 98/49; PULSE 70; RESP 15; TEMP 97.3; O2SAT 96
[2017-10-17 08:00] VITALS: BP 142/65; PULSE 75; PULSE 96; RESP 15; TEMP 98.5; O2SAT 96
[2017-10-17] MEDS: QUEtiapine FUMARATE 25 MG TAB PO SCH ×2 (09:00→21:00)
[2017-10-17] MEDS: NITROFURANTOIN MONOHYD MACROCR 100 MG CAP PO SCH ×2 (09:00→21:00)
--- NOTE | 2017-10-17 09:19 | HHI.PYPN ---
Subjective Remarks Patient seen for follow-up, chart review. Discussion she staff reported the patient yesterday had refused meds but then was encouraged to take and which did continues to be noted to be paranoid. Patient was found lying in hospital bed solving that but was able to wake up to participate in interview but noted to be very guarded and slightly irritable today. Patient states that she is feeling "fine" reported having slept well denies any physical pain no complaints at this time patient alert and oriented only to person patient states that she does not have any children although patient does have a son who was involved in her care remotely. Patient allow for vital signs but Stating "please on her me, please don't kill me". Patient continues to be noted to be paranoid was noted to be wandering in the hallway yesterday but easily redirectable compared to first day. Review of Systems Except as stated in HPI: all other systems reviewed are Neg Mental Status Examination Appearance: Appropriate Consciousness: Alert Orientation: Person Speech: Incoherent (at times) Language: Other (clang associations) Fund of Knowledge: Inadequate Attention and Concentration: Inadequate Memory: Impaired Mood: Angry, Other (agitated) Affect: Irritable, Other (agitated) Thought Process & Associations: Linear Thought Content: Preoccupations Hallucination Type: Other (unable to assess at this time due to agitation) Delusion Type: Other (unable to assess at this time due to agitation) Suicidal Ideation: No Suicidal Plan: No Suicidal Intention: No Homicidal Ideation: No Homicidal Plan: No Homicidal Intention: No Insight: Poor Judgment: Poor Results Labs Labs reviewed Test 10/16/17 12:50 Hemoglobin A1c 5.4 % Triglycerides Level 116 MG/DL Cholesterol Level 256 MG/DL LDL Cholesterol 132 MG/DL HDL Cholesterol 101.2 MG/DL Cholesterol/HDL Ratio 2.52 RATIO Date/Time Source Procedure Growth Status 10/15/17 18:46 Urine Random Urine Urine Culture - Preliminary IMMATURE GROWTH - REINCUBATE Resulted Vitals/IOs Vital Signs Date Time Temp Pulse Resp B/P (MAP) Pulse Ox O2 Delivery O2 Flow Rate FiO2 10/17/17 06:27 97.3 70 15 98/49 (65) 96 10/15/17 18:39 Room Air Intake and Output 10/17/17 10/17/17 10/18/17 08:00 16:00 00:00 Intake Total 0 ml Balance 0 ml Assessment & Plan Problem List: (1) Dementia of Alzheimer's type with behavioral disturbance ICD Codes: G30.9 - Alzheimer's disease, unspecified; F02.81 - Dementia in other diseases classified elsewhere with behavioral disturbance Assessment & Plan Patient at this time continues to be noted to be paranoid, irritable but redirectable. Staff attempted to assist patient with breakfast this morning but became more resistant to help and irritable. Patient is not required ETO since yesterday and has been more manageable. Patient was started quetiapine yesterday will continue current treatment dose at this time and observe further for mood and behavior. We'll order a dietitian consult for or by mouth intake, physical therapy consult and OT consult. Continue recommendations as per primary medical team. Discharge planning in progress. Justification for Cont. Inpt. At risk for further decompensation if at lower level of care Discharge Planning As patient with patient's power of linux unix engineer currently will explore options for nursing care facilities for patient. Shaheen Tee MD Oct 17, 2017 09:19
--- NOTE | 2017-10-17 11:45 | HHI.PR ---
Subjective Remarks Patient is much more communicative today. However she is mostly sleeping in her bed. Would only answer yes or no questions. She denies any symptoms again today as well. No acute overnight issues. Objective Vitals Vital Signs Date Time Temp Pulse Resp B/P (MAP) Pulse Ox O2 Delivery O2 Flow Rate FiO2 10/17/17 06:27 97.3 70 15 98/49 (65) 96 10/16/17 18:00 98.0 75 17 135/61 (85) 98 I/O 10/16/17 10/16/17 10/16/17 10/17/17 10/17/17 10/17/17 07:00 15:00 23:00 07:00 15:00 23:00 Intake Total 0 ml 0 ml 200 ml 0 ml 0 ml Balance 0 ml 0 ml 200 ml 0 ml 0 ml Intake Oral 0 ml 0 ml 200 ml 0 ml 0 ml # Voids 0 2 # Bowel Movements 1 Result Diagram: 10/15/17 1010 10/15/17 1010 Objective Remarks GENERAL: This is elderly lady, not in distress. Lying down in bed. Not participating in activities. Looks quite depressed. SKIN: No rashes, ecchymoses or lesions. Cool and dry. HEAD: Atraumatic. Normocephalic. No temporal or scalp tenderness. EYES: No scleral icterus. No injection or drainage. ENT: Nose without bleeding, purulent drainage or septal hematoma. Airway patent. NECK: Trachea midline. No JVD CARDIOVASCULAR: Regular rate and rhythm without murmurs, gallops, or rubs. RESPIRATORY: Clear to auscultation. Breath sounds equal bilaterally. No wheezes , rales, or rhonchi. GASTROINTESTINAL: Abdomen soft, non-tender, nondistended. . No guarding. MUSCULOSKELETAL: Extremities without clubbing, cyanosis, or edema.. No calf tenderness. NEUROLOGICAL: Awake and alert. Motor and sensory grossly within normal limits.. Normal speech. A/P Assessment and Plan Impression: Abnormal UA. Asymptomatic bacteriuria. Urine culture results reviewed. Immature growth. Patient denies any other medical issues. From her home medications as well, there was no medications for medical comorbidities. Plan: Patient is likely having asymptomatic bacteriuria. Cultures did not reveal any significant results. Therefore we'll not start her on any antibiotics. Resume current psychiatric care. Patient is medically cleared for discharge. We will sign off on the case. Discharge Planning per psychiatry Vijaya Caraballo MD Oct 17, 2017 11:45
[2017-10-17] MEDS: ENOXAPARIN SODIUM 40 MG/0.4 ML SYRINGE SQ SCH (12:00)
[2017-10-17 18:14] VITALS: BP 97/46; PULSE 74; RESP 15; O2SAT 96
[2017-10-17] MEDS: NAMZARIC PO SCH (21:00)
[2017-10-18 05:53] VITALS: BP 147/63; PULSE 72; RESP 15; TEMP 97.8; O2SAT 95
[2017-10-18] MEDS: QUEtiapine FUMARATE 25 MG TAB PO SCH ×3 (08:03→21:34)
[2017-10-18] MEDS: NITROFURANTOIN MONOHYD MACROCR 100 MG CAP PO SCH ×3 (08:03→21:34)
--- NOTE | 2017-10-18 09:23 | HHI.PYPN ---
Subjective Remarks The patient was seen today for psychiatric reevaluation. Chart was reviewed. Case discussed with nurse in charge and also social work therapist [employer]. Discharge plan discussed. Hospitalist recommendations at patient. In the evaluation the patient is oppositional, irritable, verbally hostile. She says that she doesn' t want to talk with anybody, she says that she was to go to [place] right now. When I ask her to walk part in [place], she says "to where we are right now, this is [place]". The patient has been restless in the unit, agitated, persistently trying to elope, very disorganized and difficult to redirect. She has been partially compliant with psychotropics, refusing by mouth on and off. Review of Systems Except as stated in HPI: all other systems reviewed are Neg Mental Status Examination Appearance: Appropriate Consciousness: Alert Orientation: Person Speech: Incoherent (at times) Language: Other (clang associations) Fund of Knowledge: Inadequate Attention and Concentration: Inadequate Memory: Impaired Mood: Angry, Other (agitated) Affect: Irritable, Other (agitated) Thought Process & Associations: Linear Thought Content: Preoccupations Hallucination Type: Other (unable to assess at this time due to agitation) Delusion Type: Other (unable to assess at this time due to agitation) Suicidal Ideation: No Suicidal Plan: No Suicidal Intention: No Homicidal Ideation: No Homicidal Plan: No Homicidal Intention: No Insight: Poor Judgment: Poor Results Labs Date/Time Source Procedure Growth Status 10/15/17 18:46 Urine Random Urine Urine Culture - Final 50-100,000 CFU/ML MIXED GRAM POSITIVE... Complete Vitals/IOs Vital Signs Date Time Temp Pulse Resp B/P (MAP) Pulse Ox O2 Delivery O2 Flow Rate FiO2 10/18/17 05:53 97.8 72 15 147/63 (91) 95 10/15/17 18:39 Room Air Intake and Output 10/18/17 10/18/17 10/19/17 08:00 16:00 00:00 Intake Total 0 ml Balance 0 ml Assessment & Plan Problem List: (1) Dementia of Alzheimer's type with behavioral disturbance ICD Codes: G30.9 - Alzheimer's disease, unspecified; F02.81 - Dementia in other diseases classified elsewhere with behavioral disturbance Assessment & Plan: Patient continues to be very agitated, verbally hostile, very irritable, will increase the Seroquel to 25 mg twice a day for her behavioral dysregulation. Continue Haldol 1 mg every 8 hours when necessary severe aggression and agitation. Medical recommendations appreciated. Assessment & Plan Estimated LOS: days Justification for Cont. Inpt. Patient is very agitated, disorganized, difficult to handle and redirect, she needs to continue psychiatric hospitalization for stabilization. Chris David MD Oct 18, 2017 09:23
[2017-10-18] MEDS: HALOPERIDOL LACTATE 5 MG/ML AMP IM PRN (10:25)
[2017-10-18] MEDS: ENOXAPARIN SODIUM 40 MG/0.4 ML SYRINGE SQ SCH ×2 (12:00→13:00)
[2017-10-18 17:44] VITALS: BP 162/67; PULSE 69; RESP 15; TEMP 98.5; O2SAT 100
[2017-10-18] MEDS: NAMZARIC PO SCH (21:00)
[2017-10-19 05:41] VITALS: BP 148/70; PULSE 65; RESP 16; TEMP 97.7; O2SAT 97
[2017-10-19] MEDS: QUEtiapine FUMARATE 25 MG TAB PO SCH ×2 (08:16→20:57)
[2017-10-19] MEDS: NITROFURANTOIN MONOHYD MACROCR 100 MG CAP PO SCH ×2 (08:16→20:57)
[2017-10-19] MEDS: ENOXAPARIN SODIUM 40 MG/0.4 ML SYRINGE SQ SCH (11:28)
--- NOTE | 2017-10-19 18:10 | HHI.PYPN ---
Subjective Remarks Patient was seen and case discussed with nursing. AAOx1. Nursing has questions with duration of antibiotics and asking for medical consult. Pt remains pleasantly confused. Appetite is poor but she says she will try to eat. Intermittently compliant with medication. Mental Status Examination Appearance: Appropriate Consciousness: Alert Orientation: Person Speech: Incoherent (at times) Language: Other (clang associations) Fund of Knowledge: Inadequate Attention and Concentration: Inadequate Memory: Impaired Mood: Oppositional Affect: Irritable, Other (agitated) Thought Process & Associations: Disorganized Thought Content: Preoccupations Hallucination Type: Other (unable to assess at this time due to agitation) Delusion Type: Other (unable to assess at this time due to agitation) Suicidal Ideation: No Suicidal Plan: No Suicidal Intention: No Homicidal Ideation: No Homicidal Plan: No Homicidal Intention: No Insight: Poor Judgment: Poor Results Labs Date/Time Source Procedure Growth Status 10/15/17 18:46 Urine Random Urine Urine Culture - Final 50-100,000 CFU/ML MIXED GRAM POSITIVE... Complete Vitals/IOs Vital Signs Date Time Temp Pulse Resp B/P (MAP) Pulse Ox O2 Delivery O2 Flow Rate FiO2 10/19/17 05:41 97.7 65 16 148/70 (96) 97 10/15/17 18:39 Room Air Intake and Output 10/19/17 10/19/17 10/20/17 08:00 16:00 00:00 Intake Total 120 ml 600 ml 840 ml Balance 120 ml 600 ml 840 ml Assessment & Plan Problem List: (1) Dementia of Alzheimer's type with behavioral disturbance ICD Codes: G30.9 - Alzheimer's disease, unspecified; F02.81 - Dementia in other diseases classified elsewhere with behavioral disturbance Assessment & Plan Continue current treatment plan. Consult medicine. Justification for Cont. Inpt. Patient would decompensate in a less restrictive setting Salomón Baez DO Oct 19, 2017 18:10
[2017-10-19] MEDS: NAMZARIC PO SCH (20:57)
[2017-10-20 06:06] VITALS: BP 162/67; PULSE 68; RESP 16; TEMP 97.2; O2SAT 97
--- NOTE | 2017-10-20 07:42 | HHI.PR ---
Subjective Remarks She isn't that appears not to kidneys dressed. His diet. No chest pain or shortness of breath, without vomiting diarrhea or constipation. Denies any fever or chills no suprapubic pain no urinary complaints at this time. Says she 's eating well and has a good urine output. Objective Vitals Vital Signs Date Time Temp Pulse Resp B/P (MAP) Pulse Ox O2 Delivery O2 Flow Rate FiO2 10/20/17 06:06 97.2 68 16 162/67 (98) 97 I/O 10/19/17 10/19/17 10/19/17 10/20/17 10/20/17 10/20/17 07:00 15:00 23:00 07:00 15:00 23:00 Intake Total 720 ml 840 ml 240 ml Balance 720 ml 840 ml 240 ml Intake Oral 720 ml 840 ml 240 ml # Voids 0 5 2 # Bowel Movements 0 Objective Remarks GENERAL: This is elderly lady, not in distress. Lying down in bed. Not participating in activities. Looks quite depressed. CARDIOVASCULAR: Regular rate and rhythm without murmurs, gallops, or rubs. RESPIRATORY: Clear to auscultation. Breath sounds equal bilaterally. No wheezes , rales, or rhonchi. GASTROINTESTINAL: Abdomen soft, non-tender, nondistended. . No guarding. MUSCULOSKELETAL: Extremities without clubbing, cyanosis, or edema.. No calf tenderness. NEUROLOGICAL: Awake and alert. Motor and sensory grossly within normal limits.. Normal speech. A/P Assessment and Plan Abnormal UA. Asymptomatic bacteriuria. Urine culture results reviewed. Immature growth. Patient denies any other medical issues. From her home medications as well, there was no medications for medical comorbidities. Plan: Patient is likely having asymptomatic bacteriuria. Cultures did not reveal any significant results. DC antibiotic Resume current psychiatric care. Appears stable medically. Discharge Planning per psychiatry Echo Fuentes MD Oct 20, 2017 07:41
[2017-10-20] MEDS: QUEtiapine FUMARATE 25 MG TAB PO SCH ×2 (08:23→21:00)
[2017-10-20] MEDS: ENOXAPARIN SODIUM 40 MG/0.4 ML SYRINGE SQ SCH (11:20)
--- NOTE | 2017-10-20 14:42 | HHI.PYPN ---
Subjective Remarks Pt was seen and case discussed with nursing. AAOx3. Behaving well on the unit, no outbursts, tolerating medication well. Looking forward to discharge next week. Mental Status Examination Appearance: Appropriate Consciousness: Alert Orientation: Person Speech: Incoherent (at times) Language: Other (clang associations) Fund of Knowledge: Inadequate Attention and Concentration: Inadequate Memory: Impaired Mood: Oppositional Affect: Irritable, Other (agitated) Thought Process & Associations: Disorganized Thought Content: Preoccupations Hallucination Type: Other (unable to assess at this time due to agitation) Delusion Type: Other (unable to assess at this time due to agitation) Suicidal Ideation: No Suicidal Plan: No Suicidal Intention: No Homicidal Ideation: No Homicidal Plan: No Homicidal Intention: No Insight: Poor Judgment: Poor Results Labs Date/Time Source Procedure Growth Status 10/15/17 18:46 Urine Random Urine Urine Culture - Final 50-100,000 CFU/ML MIXED GRAM POSITIVE... Complete Vitals/IOs Vital Signs Date Time Temp Pulse Resp B/P (MAP) Pulse Ox O2 Delivery O2 Flow Rate FiO2 10/20/17 06:06 97.2 68 16 162/67 (98) 97 Intake and Output 10/20/17 10/20/17 10/21/17 08:00 16:00 00:00 Intake Total 120 ml 0 ml Balance 120 ml 0 ml Assessment & Plan Problem List: (1) Dementia of Alzheimer's type with behavioral disturbance ICD Codes: G30.9 - Alzheimer's disease, unspecified; F02.81 - Dementia in other diseases classified elsewhere with behavioral disturbance Assessment & Plan Continue current treatment plan. Justification for Cont. Inpt. Patient would decompensate in a less restrictive setting. Salomón Baez DO Oct 20, 2017 14:42
--- NOTE | 2017-10-20 14:45 | HHI.PYPN ---
Subjective Remarks Pt was seen and case discussed with nursing. Pt remains oppositional and confused. She is exit seeking with another patient throughout the day. Oriented X1. Refusing medication. No outbursts. Mental Status Examination Appearance: Appropriate Consciousness: Alert Orientation: Person Speech: Incoherent (at times) Language: Other (clang associations) Fund of Knowledge: Inadequate Attention and Concentration: Inadequate Memory: Impaired Mood: Oppositional, Irritable Affect: Irritable, Other (agitated) Thought Process & Associations: Disorganized Thought Content: Preoccupations Hallucination Type: Other (unable to assess at this time due to agitation) Delusion Type: Other (unable to assess at this time due to agitation) Suicidal Ideation: No Suicidal Plan: No Suicidal Intention: No Homicidal Ideation: No Homicidal Plan: No Homicidal Intention: No Insight: Poor Judgment: Poor Results Labs Date/Time Source Procedure Growth Status 10/15/17 18:46 Urine Random Urine Urine Culture - Final 50-100,000 CFU/ML MIXED GRAM POSITIVE... Complete Vitals/IOs Vital Signs Date Time Temp Pulse Resp B/P (MAP) Pulse Ox O2 Delivery O2 Flow Rate FiO2 10/20/17 06:06 97.2 68 16 162/67 (98) 97 Intake and Output 10/20/17 10/20/17 10/21/17 08:00 16:00 00:00 Intake Total 120 ml 0 ml Balance 120 ml 0 ml Assessment & Plan Problem List: (1) Dementia of Alzheimer's type with behavioral disturbance ICD Codes: G30.9 - Alzheimer's disease, unspecified; F02.81 - Dementia in other diseases classified elsewhere with behavioral disturbance Assessment & Plan Continue current treatment plan. Justification for Cont. Inpt. Patient would decompensate in a less restrictive setting. Salomón Baez DO Oct 20, 2017 14:45
[2017-10-20 18:00] VITALS: BP 160/74; PULSE 90; RESP 18; TEMP 97; O2SAT 97
[2017-10-20] MEDS: NAMZARIC PO SCH (21:00)
[2017-10-21 06:35] VITALS: BP 133/60; PULSE 65; RESP 15; TEMP 97.6; O2SAT 98
[2017-10-21] MEDS: QUEtiapine FUMARATE 25 MG TAB PO SCH ×3 (08:46→20:44)
[2017-10-21] MEDS: ENOXAPARIN SODIUM 40 MG/0.4 ML SYRINGE SQ SCH (12:00)
--- NOTE | 2017-10-21 12:50 | HHI.PYPN ---
Subjective Remarks Patient seen for follow-up, chart reviewed. Discussion she staff reported the patient had an refusing medications over the weekend, has antibiotic discontinued as per medical team, patient irritable at times and ecstasy taking. Patient was found lying in hospital bed, cooperative alert and oriented only to person. Patient states that she has been feeling "alright" denies any depressive, manic or psychotic symptoms at this time. When asked about eating and drinking well patient states that she is doing so despite nursing report that patient has been eating minimally. It was reported the patient was visited by a previous caregiver which had assisted her with meals and had eaten well at that time. Patient does not recall having been visited by this person she continues to have cognitive deficits secondary to dementia. Patient initially refused medications morning but did take with encouragement this morning. Review of Systems Except as stated in HPI: all other systems reviewed are Neg Mental Status Examination Appearance: Disheveled Consciousness: Alert Orientation: Person Speech: Unremarkable, Other (low-volume) Language: Adequate Fund of Knowledge: Inadequate Attention and Concentration: Inadequate Memory: Impaired Mood: Irritable Affect: Other (guarded) Thought Process & Associations: Intact, Linear Thought Content: Appropriate, Preoccupations Hallucination Type: None Delusion Type: None Suicidal Ideation: No Suicidal Plan: No Suicidal Intention: No Homicidal Ideation: No Homicidal Plan: No Homicidal Intention: No Insight: Poor Judgment: Poor Results Labs Labs reviewed Date/Time Source Procedure Growth Status 10/15/17 18:46 Urine Random Urine Urine Culture - Final 50-100,000 CFU/ML MIXED GRAM POSITIVE... Complete Vitals/IOs Vital Signs Date Time Temp Pulse Resp B/P (MAP) Pulse Ox O2 Delivery O2 Flow Rate FiO2 10/21/17 06:35 97.6 65 15 133/60 (84) 98 Intake and Output 10/21/17 10/21/17 10/22/17 08:00 16:00 00:00 Intake Total 240 ml Balance 240 ml Assessment & Plan Problem List: (1) Dementia of Alzheimer's type with behavioral disturbance ICD Codes: G30.9 - Alzheimer's disease, unspecified; F02.81 - Dementia in other diseases classified elsewhere with behavioral disturbance Assessment & Plan Patient at this time continues to be alert and oriented only to person, has not had any behavioral dyscontrol but has been noted over the weekend to be anxious seeking but no agitation. Patient to continue current treatment for now. Continue to encourage patient to maintain adequate by mouth intake as well as fluid intake, continued to encourage patient to adhere to treatment. Continue to encourage maintenance of personal hygiene. Continue recommendations as per primary medical team. Discharge planning in progress Justification for Cont. Inpt. At risk for further decompensation if at lower level of care Discharge Planning Patient at discharge nursing facility once one is acquired. Shaheen Tee MD Oct 21, 2017 12:50
--- NOTE | 2017-10-21 15:10 | PD.TTN ---
Patient Problems 1. Discharge planning 2. Medication compliance 3. Knowledge deficit 4. Lack of coping skills Progress Toward Goals Provider Present: Dr. Janessa Tee Provider Input: 10/21/2018 patient is refusing medicatation, adjustments to assist with enable medication compliance 10/16/17 patient will be assess for treatment needs Nurse(s) Present: JEROME Mcclelland Nurse(s) Input: 10/21/17 patient is refusing medication, and most meals Patient is agitated, compliant with care Psychiatric Counselors Present: PROSPER He Psych Therapist Input: 10/21/2017; facility has been faxed for placement and [id number] with Level 1 completed Patient will be assess for service, POA will be contact and directed to fax POA paperwork Group Spec/RT/OT/HYATT Present: EDMAR Solares Spec/RT/OT/HYATT Input: 10/21/2017; patient does not attend groups lacks insight or ability to interact with others Patient is a new admission Documentation Scribe: PROSPER He Sandra LMHC Oct 21, 2017 15:10
[2017-10-21 18:11] VITALS: BP 166/72; PULSE 67; RESP 16; TEMP 97.6; O2SAT 98
[2017-10-21] MEDS: NAMZARIC PO SCH (20:44)
--- NOTE | 2017-10-21 20:50 | HHI.PR ---
Subjective Remarks Denies cp/sob. Denies fevers, chills, abdominal pain. States she is eating well. Objective Vitals Vital Signs Date Time Temp Pulse Resp B/P (MAP) Pulse Ox O2 Delivery O2 Flow Rate FiO2 10/21/17 18:11 97.6 67 16 166/72 (103) 98 10/21/17 06:35 97.6 65 15 133/60 (84) 98 I/O 10/20/17 10/20/17 10/20/17 10/21/17 10/21/17 10/21/17 07:00 15:00 23:00 07:00 15:00 23:00 Intake Total 240 ml 120 ml 120 ml 240 ml 357 ml Output Total 2 ml Balance 240 ml 120 ml 118 ml 240 ml 357 ml Intake Oral 240 ml 120 ml 120 ml 240 ml 357 ml Output Urine Total 2 ml # Voids 2 0 3 1 # Bowel Movements 0 Objective Remarks GENERAL: This is elderly lady, not in distress. Lying down in bed. Not participating in activities. Looks quite depressed. CARDIOVASCULAR: Regular rate and rhythm without murmurs, gallops, or rubs. RESPIRATORY: Clear to auscultation. Breath sounds equal bilaterally. No wheezes , rales, or rhonchi. GASTROINTESTINAL: Abdomen soft, non-tender, nondistended. . No guarding. MUSCULOSKELETAL: Extremities without clubbing, cyanosis, or edema.. No calf tenderness. NEUROLOGICAL: Awake and alert. Motor and sensory grossly within normal limits.. Normal speech. Medications and IVs Current Medications Medications (Trade) Dose Ordered Sig/Bisi Route Start Time Stop Time Status Last Admin (Benadryl) 50 mg HS PRN PO 10/15/17 22:30 10/16/17 20:47 (Benadryl Inj) 50 mg HS PRN IM 10/15/17 22:30 (Tylenol) 650 mg Q4H PRN PO 10/15/17 22:30 10/16/17 20:48 (Milk Of Magnesia Liq) 30 ml DAILY PRN PO 10/15/17 22:30 (Mag-Al Plus Susp Liq) 30 ml Q6H PRN PO 10/15/17 22:30 Patient Own Medication PT OWN MED: NAMZA... HS PO 10/16/17 21:00 10/16/17 20:49 (Haldol Inj) 1 mg Q8H PRN IM 10/16/17 09:45 10/18/17 10:25 (Pill Splitter) 1 ea UNSCH PRN OTHER 10/16/17 12:00 (Lovenox Inj) 40 mg Q24H SQ 10/17/17 12:00 10/17/17 12:00 (SEROquel) 25 mg BID PO 10/18/17 21:00 10/21/17 09:00 A/P Problem List: (1) Dementia of Alzheimer's type with behavioral disturbance ICD Code: G30.9 - Alzheimer's disease, unspecified; F02.81 - Dementia in other diseases classified elsewhere with behavioral disturbance Plan: Management as per psychiatry. (2) Abnormal finding on urinalysis ICD Code: R82.90 - Unspecified abnormal findings in urine Plan: UA consistent with contamination. Patient is afebrile and normal wbc. Continue to monitor off antibiotics. (3) HTN (hypertension) ICD Code: I10 - Essential (primary) hypertension Plan: BP consistently elevated in the 160's. Will start patient on amlodipine 5 mg po daily. Continue to monitor vital signs. Start on clonidine as needed for sbp >160. Problem Qualifiers (1) HTN (hypertension): Qualified Codes: I10 - Essential (primary) hypertension Del London MD Oct 21, 2017 20:50
[2017-10-21] MEDS ORDERED: cloNIDine HCL 0.1 MG TAB PO PRN (21:00)
[2017-10-21 23:51] VITALS: BP 127/79; PULSE 110; RESP 18; TEMP 97.3; O2SAT 94
[2017-10-22 05:59] VITALS: BP 120/70; PULSE 62; RESP 16; TEMP 97.7; O2SAT 96
[2017-10-22] MEDS: QUEtiapine FUMARATE 25 MG TAB PO SCH ×2 (11:25→20:57)
[2017-10-22] MEDS: amLODIPine BESYLATE 5 MG TAB PO SCH (11:25)
[2017-10-22] MEDS: ENOXAPARIN SODIUM 40 MG/0.4 ML SYRINGE SQ SCH (12:00)
[2017-10-22 12:04] LABS: CREATININE 1.22 MG/DL (0.50-1.00)
--- NOTE | 2017-10-22 12:17 | HHI.PR ---
Subjective Remarks denies every symptom still with pronounced flat affect wants to be left alone not participating in activities or interview did not eat most of her food has been refusing lovenox per chart Urine cx <100,000 premature growth Objective Vitals Vital Signs Date Time Temp Pulse Resp B/P (MAP) Pulse Ox O2 Delivery O2 Flow Rate FiO2 10/22/17 05:59 97.7 62 16 120/70 (87) 96 10/21/17 23:51 97.3 110 18 127/79 (95) 94 10/21/17 18:11 97.6 67 16 166/72 (103) 98 I/O 10/21/17 10/21/17 10/21/17 10/22/17 10/22/17 10/22/17 07:00 15:00 23:00 07:00 15:00 23:00 Intake Total 240 ml 417 ml 0 ml 240 ml Balance 240 ml 417 ml 0 ml 240 ml Intake Oral 240 ml 417 ml 0 ml 240 ml # Voids 3 2 1 Result Diagram: 10/22/17 1056 Objective Remarks GENERAL: This is elderly lady, not in distress. Lying down in bed. Not participating in activities. Looks quite depressed. SKIN: No rashes, ecchymoses or lesions. Cool and dry. HEAD: Atraumatic. Normocephalic. No temporal or scalp tenderness. EYES: No scleral icterus. No injection or drainage. ENT: Nose without bleeding, purulent drainage or septal hematoma. Airway patent. NECK: Trachea midline. No JVD CARDIOVASCULAR: Regular rate and rhythm without murmurs, gallops, or rubs. RESPIRATORY: Clear to auscultation. Breath sounds equal bilaterally. No wheezes , rales, or rhonchi. GASTROINTESTINAL: Abdomen soft, non-tender, nondistended. . No guarding. MUSCULOSKELETAL: Extremities without clubbing, cyanosis, or edema.. No calf tenderness. NEUROLOGICAL: Awake and alert. Motor and sensory grossly within normal limits.. Normal speech. A/P Problem List: (1) Dementia of Alzheimer's type with behavioral disturbance ICD Code: G30.9 - Alzheimer's disease, unspecified; F02.81 - Dementia in other diseases classified elsewhere with behavioral disturbance (2) Abnormal finding on urinalysis ICD Code: R82.90 - Unspecified abnormal findings in urine (3) HTN (hypertension) ICD Code: I10 - Essential (primary) hypertension Assessment and Plan Impression: Abnormal UA. Asymptomatic bacteriuria. Urine culture results reviewed. Immature growth. Patient denies any other medical issues. From her home medications as well, there was no medications for medical comorbidities. elevated BP around 160s while in hospital- pt was started on norvasc per previous team yesterday. Plan: Patient ishaving asymptomatic bacteriuria. Cultures did not reveal any significant results. No need of antibiotics. Resume current psychiatric care. BP elevation is likely from stress in elderly- also is only at 160s systolic, however meds started yesterday per previous team- small dose norvasc now BP in 120s will write orders to measure BP ONLY WHILE STANDING UP IN ELDERLY LADY IF BP STANDING UP >160 SYSTOLIC, THEN GIVE NORVASC OTHERWISE, NO MEDS orders written such as that Patient is medically cleared for discharge. We will sign off on the case. Discharge Planning per psychiatry Vijaya Caraballo MD Oct 22, 2017 12:17
--- NOTE | 2017-10-22 12:46 | HHI.PYPN ---
Subjective Remarks The patient was seen today for psychiatric reevaluation along with nurse in charge Linda. Chart was reviewed. Patient was found laying in her bed, she wasn't sleeping, arousable, but refusing to cooperate with the interview. She says that she feels fine, reports good sleep, reports good appetite, but doesn' t answer further questions. As per nursing report the patient has been behaving better in the last 24 hours, has been less agitated and restless, but more oppositional. She has been compliant with medications, there is no significant side effects. Review of Systems Psychiatric: COMPLAINS OF: Confusion Except as stated in HPI: all other systems reviewed are Neg Mental Status Examination Appearance: Disheveled Consciousness: Alert Orientation: Person Speech: Unremarkable, Other (low-volume) Language: Adequate Fund of Knowledge: Inadequate Attention and Concentration: Inadequate Memory: Impaired Mood: Irritable Affect: Other (guarded) Thought Process & Associations: Intact, Linear Thought Content: Appropriate, Preoccupations Hallucination Type: None Delusion Type: None Suicidal Ideation: No Suicidal Plan: No Suicidal Intention: No Homicidal Ideation: No Homicidal Plan: No Homicidal Intention: No Insight: Poor Judgment: Poor Results Labs Test 10/22/17 10:56 Blood Urea Nitrogen 33 MG/DL Creatinine 1.22 MG/DL Random Glucose 100 MG/DL Calcium Level 9.0 MG/DL Sodium Level 143 MEQ/L Potassium Level 4.2 MEQ/L Chloride Level 108 MEQ/L Carbon Dioxide Level 29.0 MEQ/L Anion Gap 6 MEQ/L Estimat Glomerular Filtration Rate 42 ML/MIN Date/Time Source Procedure Growth Status 10/15/17 18:46 Urine Random Urine Urine Culture - Final 50-100,000 CFU/ML MIXED GRAM POSITIVE... Complete Vitals/IOs Vital Signs Date Time Temp Pulse Resp B/P (MAP) Pulse Ox O2 Delivery O2 Flow Rate FiO2 10/22/17 05:59 97.7 62 16 120/70 (87) 96 Intake and Output 10/22/17 10/22/17 10/23/17 08:00 16:00 00:00 Intake Total 0 ml 240 ml Balance 0 ml 240 ml Assessment & Plan Problem List: (1) Dementia of Alzheimer's type with behavioral disturbance ICD Codes: G30.9 - Alzheimer's disease, unspecified; F02.81 - Dementia in other diseases classified elsewhere with behavioral disturbance Assessment & Plan: Continue current psychotropic regimen. Assessment & Plan Estimated LOS: days Justification for Cont. Inpt. Patient needs to continue psychiatric hospitalization for stabilization. Chris David MD Oct 22, 2017 12:46
[2017-10-22 17:42] VITALS: BP 120/70; PULSE 62; RESP 16; TEMP 97.7; O2SAT 96
[2017-10-22] MEDS: NAMZARIC PO SCH (20:57)
[2017-10-23 05:19] VITALS: BP 130/59; PULSE 63; RESP 17; TEMP 97.5; O2SAT 96
[2017-10-23] MEDS: QUEtiapine FUMARATE 25 MG TAB PO SCH ×2 (09:00→20:27)
[2017-10-23] MEDS: amLODIPine BESYLATE 5 MG TAB PO SCH (09:00)
[2017-10-23 10:45] VITALS: BP 109/57
--- NOTE | 2017-10-23 10:45 | HHI.PYPN ---
Subjective Remarks Patient seen for follow up up; chart reviewed. Discussion with nursing staff, patient continues to be irritable, refusing to eat at times but took medications last night. Patient was found lying in hospital bed noted to be alert and oriented only to person but cooperative interview today. Patient states she is feeling "okay" that her mood has been "fine" but denies anxiety depressed denies any manic or psychotic symptoms at this time. Patient agrees to increase her by mouth intake, eat better and compliant with medications. Patient noted to be somewhat guarded but not irritable. Review of Systems Except as stated in HPI: all other systems reviewed are Neg Mental Status Examination Appearance: Disheveled Consciousness: Alert Orientation: Person Speech: Unremarkable, Other (low-volume) Language: Adequate Fund of Knowledge: Inadequate Attention and Concentration: Inadequate Memory: Impaired Mood: Appropriate Affect: Other (guarded) Thought Process & Associations: Intact, Linear Thought Content: Appropriate, Preoccupations Hallucination Type: None Delusion Type: None Suicidal Ideation: No Suicidal Plan: No Suicidal Intention: No Homicidal Ideation: No Homicidal Plan: No Homicidal Intention: No Insight: Poor Judgment: Poor Results Labs Labs reviewed Test 10/22/17 10:56 Blood Urea Nitrogen 33 MG/DL Creatinine 1.22 MG/DL Random Glucose 100 MG/DL Calcium Level 9.0 MG/DL Sodium Level 143 MEQ/L Potassium Level 4.2 MEQ/L Chloride Level 108 MEQ/L Carbon Dioxide Level 29.0 MEQ/L Anion Gap 6 MEQ/L Estimat Glomerular Filtration Rate 42 ML/MIN Date/Time Source Procedure Growth Status 10/15/17 18:46 Urine Random Urine Urine Culture - Final 50-100,000 CFU/ML MIXED GRAM POSITIVE... Complete Vitals/IOs Vital Signs Date Time Temp Pulse Resp B/P (MAP) Pulse Ox O2 Delivery O2 Flow Rate FiO2 10/23/17 05:19 97.5 63 17 130/59 (82) 96 Assessment & Plan Problem List: (1) Dementia of Alzheimer's type with behavioral disturbance ICD Codes: G30.9 - Alzheimer's disease, unspecified; F02.81 - Dementia in other diseases classified elsewhere with behavioral disturbance Assessment & Plan Patient at this time continues to be alert and oriented only to person, has not been noted to be exit seeking or aggressive with staff. Patient continues to be consistent with eating in taking medications but will do so with encouragement. Continue current treatment. Discharge planning in progress Justification for Cont. Inpt. At risk for further decompensation if at lower level of care Discharge Planning Patient to be discharged to a nursing facility once 1 is acquired Shaheen Tee MD Oct 23, 2017 10:45
[2017-10-23] MEDS: ENOXAPARIN SODIUM 40 MG/0.4 ML SYRINGE SQ SCH (12:00)
--- NOTE | 2017-10-23 15:02 | PD.TTN ---
Patient Problems 1. Discharge planning 2. Medication compliance 3. Knowledge deficit 4. Lack of coping skills Progress Toward Goals Provider Present: Dr. Janessa Tee Provider Input: 10/23/2017; Per doctor; staff has reported that patient is irritable, refusing to eat at times but took medications; staff is to encouraged patient with meals and medications. 10/21/2018 patient is refusing medicatation, adjustments to assist with enable medication compliance 10/16/17 patient will be assess for treatment needs Nurse(s) Present: JEROME Palafox Nurse(s) Input: 10/23/2017; per nurse patient takes some of her medication with redirection and presistance; she continues to refuse meals and is prompt with liquids 10/21/17 patient is refusing medication, and most meals Patient is agitated, compliant with care Psychiatric Counselors Present: PROSPER He Psych Therapist Input: 10/23/2017; [facility] has accepted patient;however they are requiring patient to have at least 3 good days with meals and medications 10/21/2017; facility has been faxed for placement and [id number] with Level 1 completed Patient will be assess for service, POA will be contact and directed to fax POA paperwork Group Spec/RT/OT/HYATT Present: EDMAR Solares Group Spec/RT/OT/HYATT Input: 10/23/2017; patient lacks the mental ability to participate with groups or peers appropriately 10/21/2017; patient does not attend groups lacks insight or ability to interact with others Patient is a new admission Documentation Scribe: PROSPER He Sandra LMHC Oct 23, 2017 15:02
[2017-10-23 18:35] VITALS: BP 98/52; PULSE 105; RESP 20; TEMP 98.1; O2SAT 96
[2017-10-23] MEDS: NAMZARIC PO SCH (20:01)
[2017-10-23] MEDS: diphenhydrAMINE HCL 50 MG CAP - HS PRN PO (20:27)
[2017-10-24] MEDS: QUEtiapine FUMARATE 25 MG TAB PO SCH ×2 (08:57→20:12)
[2017-10-24] MEDS: amLODIPine BESYLATE 5 MG TAB PO SCH (08:59)
[2017-10-24 09:00] VITALS: BP 106/57; PULSE 62
[2017-10-24] MEDS: ENOXAPARIN SODIUM 40 MG/0.4 ML SYRINGE SQ SCH (12:00)
--- NOTE | 2017-10-24 12:40 | HHI.PYPN ---
Subjective Remarks Patient seen for follow-up, chart review. Noticed or reported patient is quite refuse breakfast this morning as well as mostly in bed. She was found in bed all cooperative status feeling "alright" continues to be alert and oriented only to person. Minimally cooperative during interview but was able to Participate in physical therapy and made her way to the day room where her sister was presented to her and was found starting to eat. Patient presented to mental health court today and was retained on a continuance. Review of Systems Except as stated in HPI: all other systems reviewed are Neg Mental Status Examination Appearance: Disheveled Consciousness: Alert Orientation: Person Speech: Unremarkable, Other (low-volume) Language: Adequate Fund of Knowledge: Inadequate Attention and Concentration: Inadequate Memory: Impaired Mood: Appropriate Affect: Other (guarded) Thought Process & Associations: Intact, Linear Thought Content: Appropriate, Preoccupations Hallucination Type: None Delusion Type: None Suicidal Ideation: No Suicidal Plan: No Suicidal Intention: No Homicidal Ideation: No Homicidal Plan: No Homicidal Intention: No Insight: Poor Judgment: Poor Results Labs Labs reviewed Date/Time Source Procedure Growth Status 10/15/17 18:46 Urine Random Urine Urine Culture - Final 50-100,000 CFU/ML MIXED GRAM POSITIVE... Complete Vitals/IOs Vital Signs Date Time Temp Pulse Resp B/P (MAP) Pulse Ox O2 Delivery O2 Flow Rate FiO2 10/24/17 09:00 62 106/57 (73) 10/23/17 18:35 98.1 20 96 Intake and Output 10/24/17 10/24/17 10/25/17 08:00 16:00 00:00 Intake Total 240 ml 240 ml Balance 240 ml 240 ml Assessment & Plan Problem List: (1) Dementia of Alzheimer's type with behavioral disturbance ICD Codes: G30.9 - Alzheimer's disease, unspecified; F02.81 - Dementia in other diseases classified elsewhere with behavioral disturbance Assessment & Plan Patient this time continues to be confused due to neurocognitive deficits, limited cooperation with staff. Patient required a lot of encouragement for ADLs. Continue to encourage patient to continue current treatment as well as maintain personal hygiene and adequate nutritional intake and fluid intake. Will order basic metabolic panel to assess electrolyte levels Patient likely to be discharged to a nursing facility days once guardianship court has been finalized. Justification for Cont. Inpt. At risk for further decompensation at lower level of care Discharge Planning Patient may be discharged to a facility in a couple of days. Shaheen Tee MD Oct 24, 2017 12:40
[2017-10-24 18:00] VITALS: BP 126/60; PULSE 76; RESP 18; TEMP 98.4; O2SAT 98
[2017-10-24] MEDS: NAMZARIC PO SCH (20:11)
[2017-10-24] MEDS: diphenhydrAMINE HCL 50 MG CAP - HS PRN PO (20:12)
[2017-10-25 06:18] VITALS: BP 127/59; PULSE 70; RESP 16
[2017-10-25] MEDS: amLODIPine BESYLATE 5 MG TAB PO SCH (08:18)
[2017-10-25] MEDS: QUEtiapine FUMARATE 25 MG TAB PO SCH ×3 (08:18→21:05)
[2017-10-25] MEDS: ENOXAPARIN SODIUM 40 MG/0.4 ML SYRINGE SQ SCH (12:52)
--- NOTE | 2017-10-25 15:53 | HHI.PYPN ---
Subjective Remarks Patient seen for follow-up, chart reviewed. Discussion with nursing staff stated that the patient has been out of bed, continues to eat minimally requiring encouragement, irritable at times but not agitated; med compliant. Patient found sitting in day room, eating lunch, noted to be calm and cooperative with limited interaction with telegraphic typewriter installer and noted to be guarded. Patient states that she is sleeping well, no physical complaints at this time and encouraged to continue eating and compliant with her medication which she agreed to. Patient continued to be alert and oriented only to person but is a longer acting seeking but continues to require encouragement to eat more during meals. Review of Systems Except as stated in HPI: all other systems reviewed are Neg Mental Status Examination Appearance: Disheveled Consciousness: Alert Orientation: Person Speech: Unremarkable, Other (low-volume) Language: Adequate Fund of Knowledge: Inadequate Attention and Concentration: Inadequate Memory: Impaired Mood: Appropriate Affect: Other (guarded) Thought Process & Associations: Intact, Linear Thought Content: Appropriate Hallucination Type: None Delusion Type: None Suicidal Ideation: No Suicidal Plan: No Suicidal Intention: No Homicidal Ideation: No Homicidal Plan: No Homicidal Intention: No Insight: Poor Judgment: Poor Results Labs Labs reviewed Date/Time Source Procedure Growth Status 10/15/17 18:46 Urine Random Urine Urine Culture - Final 50-100,000 CFU/ML MIXED GRAM POSITIVE... Complete Vitals/IOs Vital Signs Date Time Temp Pulse Resp B/P (MAP) Pulse Ox O2 Delivery O2 Flow Rate FiO2 10/25/17 06:18 70 16 127/59 (81) 10/24/17 18:00 98.4 98 Intake and Output 10/25/17 10/25/17 10/26/17 08:00 16:00 00:00 Intake Total 0 ml 360 ml Balance 0 ml 360 ml Assessment & Plan Problem List: (1) Dementia of Alzheimer's type with behavioral disturbance ICD Codes: G30.9 - Alzheimer's disease, unspecified; F02.81 - Dementia in other diseases classified elsewhere with behavioral disturbance Assessment & Plan Patient at this time continues to be alert and oriented only to person, confused , continue to require encouragement to eat but as a will comply with medications and noted to be more compliant with eating. Patient continues to refuse labs. Due to current treatment discharge planning in progress Justification for Cont. Inpt. At risk for further decompensation if at lower level of care Discharge Planning Patient to be discharged to a nursing facility once one is acquired Shaheen Tee MD Oct 25, 2017 15:53
[2017-10-25 18:19] VITALS: BP 125/59; PULSE 80; RESP 18; TEMP 98.4; O2SAT 96
[2017-10-25] MEDS: NAMZARIC PO SCH ×2 (20:59→21:01)
[2017-10-26 06:45] VITALS: BP 133/56; PULSE 62; RESP 16; TEMP 97.2; O2SAT 100
[2017-10-26] MEDS: amLODIPine BESYLATE 5 MG TAB PO SCH (08:43)
[2017-10-26] MEDS: QUEtiapine FUMARATE 25 MG TAB PO SCH ×2 (08:43→21:09)
[2017-10-26 09:10] LABS: ALBUMIN 3.6 GM/DL (3.4-5.0); BICARBONATE 29.8 MEQ/L (21.0-32.0); CREATININE 1.18 MG/DL (0.50-1.00); DIRECT BILIRUBIN ADULT 0.1 MG/DL (0.0-0.2)
[2017-10-26 09:13] LABS: INDIRECT BILIRUBIN 0.4 MG/DL (0.0-0.8); TOTAL BILIRUBIN ADULT 0.5 MG/DL (0.2-1.0); TOTAL PROTEIN 7.4 GM/DL (6.4-8.2)
[2017-10-26] MEDS: ENOXAPARIN SODIUM 40 MG/0.4 ML SYRINGE SQ SCH (10:52)
--- NOTE | 2017-10-26 16:36 | HHI.PYPN ---
Subjective Remarks Patient was seen and case discussed with nursing. Patient is alert and oriented 1. Appears less exit seeking compared to yesterday. She is grossly confused, not knowing where she is, the date or her birthday. During the interview, she swatted an imaginary object in the air is clearly responding to internal stimuli Mental Status Examination Appearance: Disheveled Consciousness: Alert Orientation: Person Speech: Unremarkable, Other (low-volume) Language: Adequate Fund of Knowledge: Inadequate Attention and Concentration: Inadequate Memory: Impaired Mood: Appropriate Affect: Other (guarded) Thought Process & Associations: Intact, Linear Thought Content: Appropriate Hallucination Type: None Delusion Type: None Suicidal Ideation: No Suicidal Plan: No Suicidal Intention: No Homicidal Ideation: No Homicidal Plan: No Homicidal Intention: No Insight: Poor Judgment: Poor Results Labs Test 10/26/17 07:35 Blood Urea Nitrogen 31 MG/DL Creatinine 1.18 MG/DL Random Glucose 109 MG/DL Total Protein 7.4 GM/DL Albumin 3.6 GM/DL Calcium Level 9.0 MG/DL Alkaline Phosphatase 69 U/L Aspartate Amino Transf (AST/SGOT) 23 U/L Alanine Aminotransferase (ALT/SGPT) 23 U/L Total Bilirubin 0.5 MG/DL Direct Bilirubin 0.1 MG/DL Sodium Level 138 MEQ/L Potassium Level 3.8 MEQ/L Chloride Level 103 MEQ/L Carbon Dioxide Level 29.8 MEQ/L Anion Gap 5 MEQ/L Estimat Glomerular Filtration Rate 43 ML/MIN Indirect Bilirubin 0.4 MG/DL Date/Time Source Procedure Growth Status 10/15/17 18:46 Urine Random Urine Urine Culture - Final 50-100,000 CFU/ML MIXED GRAM POSITIVE... Complete Vitals/IOs Vital Signs Date Time Temp Pulse Resp B/P (MAP) Pulse Ox O2 Delivery O2 Flow Rate FiO2 10/26/17 06:45 97.2 62 16 133/56 (81) 100 Assessment & Plan Problem List: (1) Dementia of Alzheimer's type with behavioral disturbance ICD Codes: G30.9 - Alzheimer's disease, unspecified; F02.81 - Dementia in other diseases classified elsewhere with behavioral disturbance Assessment & Plan Continue current treatment plan Justification for Cont. Inpt. Patient will decompensate in a less restrictive setting Salomón Baez DO Oct 26, 2017 16:36
[2017-10-26 18:22] VITALS: BP 146/66; PULSE 73; RESP 18; TEMP 98; O2SAT 94
[2017-10-27] MEDS: QUEtiapine FUMARATE 25 MG TAB PO SCH ×2 (09:03→21:32)
[2017-10-27] MEDS: amLODIPine BESYLATE 5 MG TAB PO SCH (09:03)
[2017-10-27] MEDS: ENOXAPARIN SODIUM 40 MG/0.4 ML SYRINGE SQ SCH (12:50)
--- NOTE | 2017-10-27 14:33 | HHI.PYPN ---
Subjective Remarks Patient was seen and case discussed with nursing. Patient is alert and oriented 1, seclusive to room. She is hesitant, hypoverbal and flat. She could not tell me her birthday or any of the holidays. She into the interview by saying, take care of yourself dadjeffrey, and when asked believe is I am her father Mental Status Examination Appearance: Disheveled Consciousness: Alert Orientation: Person Speech: Unremarkable, Other (low-volume) Language: Adequate Fund of Knowledge: Inadequate Attention and Concentration: Inadequate Memory: Impaired Mood: Appropriate Affect: Other (guarded) Thought Process & Associations: Intact, Linear Thought Content: Delusional Hallucination Type: None Delusion Type: None, Bizarre Suicidal Ideation: No Suicidal Plan: No Suicidal Intention: No Homicidal Ideation: No Homicidal Plan: No Homicidal Intention: No Insight: Poor Judgment: Poor Results Labs Date/Time Source Procedure Growth Status 10/15/17 18:46 Urine Random Urine Urine Culture - Final 50-100,000 CFU/ML MIXED GRAM POSITIVE... Complete Vitals/IOs Vital Signs Date Time Temp Pulse Resp B/P (MAP) Pulse Ox O2 Delivery O2 Flow Rate FiO2 10/26/17 18:22 98.0 73 18 146/66 (92) 94 Intake and Output 10/27/17 10/27/17 10/28/17 08:00 16:00 00:00 Intake Total 60 ml Balance 60 ml Assessment & Plan Problem List: (1) Dementia of Alzheimer's type with behavioral disturbance ICD Codes: G30.9 - Alzheimer's disease, unspecified; F02.81 - Dementia in other diseases classified elsewhere with behavioral disturbance Assessment & Plan Continue current treatment plan Justification for Cont. Inpt. Patient would decompensate in a less restrictive setting Salomón Baez DO Oct 27, 2017 14:33
[2017-10-27] MEDS: HALOPERIDOL LACTATE 5 MG/ML AMP IM PRN (17:14)
[2017-10-27 18:10] VITALS: BP 115/56; PULSE 66; RESP 18; TEMP 97.6; O2SAT 96
[2017-10-27] MEDS: NAMZARIC PO SCH (20:30)
[2017-10-27] MEDS: ACETAMINOPHEN 325 MG TAB PO PRN (21:33)
[2017-10-28 06:45] VITALS: BP 120/60; PULSE 62; RESP 15; TEMP 97.2; O2SAT 99
[2017-10-28] MEDS: amLODIPine BESYLATE 5 MG TAB PO SCH (08:41)
[2017-10-28] MEDS: QUEtiapine FUMARATE 25 MG TAB PO SCH ×2 (08:41→21:20)
--- NOTE | 2017-10-28 09:22 | HHI.PYPN ---
Subjective Remarks Patient seen in her room with nurse Val. Patient in bed covers to her chin. Chart reviewed. Patient showing compliance with medication. Patient continues diffusely confused and disoriented. She does deny voices or visions. For now continue treatment Review of Systems Except as stated in HPI: all other systems reviewed are Neg Mental Status Examination Appearance: Disheveled Consciousness: Alert Orientation: Person Speech: Unremarkable, Other (low-volume) Language: Adequate Fund of Knowledge: Inadequate Attention and Concentration: Inadequate Memory: Impaired Mood: Appropriate Affect: Other (guarded) Thought Process & Associations: Intact, Linear Thought Content: Delusional Hallucination Type: None Delusion Type: None, Bizarre Suicidal Ideation: No Suicidal Plan: No Suicidal Intention: No Homicidal Ideation: No Homicidal Plan: No Homicidal Intention: No Insight: Poor Judgment: Poor Results Labs Date/Time Source Procedure Growth Status 10/15/17 18:46 Urine Random Urine Urine Culture - Final 50-100,000 CFU/ML MIXED GRAM POSITIVE... Complete Vitals/IOs Vital Signs Date Time Temp Pulse Resp B/P (MAP) Pulse Ox O2 Delivery O2 Flow Rate FiO2 10/28/17 06:45 97.2 62 15 120/60 (80) 99 Intake and Output 10/28/17 10/28/17 10/29/17 08:00 16:00 00:00 Intake Total 0 ml Balance 0 ml Assessment & Plan Problem List: (1) Dementia of Alzheimer's type with behavioral disturbance ICD Codes: G30.9 - Alzheimer's disease, unspecified; F02.81 - Dementia in other diseases classified elsewhere with behavioral disturbance (2) OTHER ALZHEIMER'S DISEASE ICD Codes: G30.8 - OTHER ALZHEIMER'S DISEASE Assessment & Plan Estimated LOS: days patient continues confused and demented, continues to isolate, while denying auditory hallucinations at times she appears to be responding to internal stimuli Justification for Cont. Inpt. At this time patient will decompensate if placed in a lower level of care Discharge Planning To be determined Casey Kaye MD Oct 28, 2017 09:22
[2017-10-28] MEDS: ENOXAPARIN SODIUM 40 MG/0.4 ML SYRINGE SQ SCH (12:28)
[2017-10-28 17:54] VITALS: BP 120/55; PULSE 79; RESP 16; TEMP 97.7; O2SAT 96
[2017-10-28] MEDS: NAMZARIC PO SCH (21:00)
[2017-10-29 05:49] VITALS: BP 107/58; PULSE 88; RESP 16; TEMP 97.1; O2SAT 99
[2017-10-29 08:33] VITALS: BP 136/61
[2017-10-29] MEDS: amLODIPine BESYLATE 5 MG TAB PO SCH ×4 (08:41→08:59)
[2017-10-29] MEDS: QUEtiapine FUMARATE 25 MG TAB PO SCH ×3 (08:41→08:59)
--- NOTE | 2017-10-29 09:36 | HHI.PYPN ---
Subjective Remarks Patient seen for follow-up, chart review. Discussion she staff reported that patient has not been sleeping but [place] and sure this morning and continues to be consistent with medications and refusing lab work. Patient was found sitting in day room noted to be slightly irritable but had been compliant with taking medications with redness morning and was encouraged to continue to eat better as well as comply with lab work which she agreed to. Patient is continues to be alert and oriented to person, noted to be confused and demanded to be discharged. Review of Systems Except as stated in HPI: all other systems reviewed are Neg Mental Status Examination Appearance: Disheveled Consciousness: Alert Orientation: Person Speech: Unremarkable, Other (low-volume) Language: Adequate Fund of Knowledge: Inadequate Attention and Concentration: Inadequate Memory: Impaired Mood: Irritable (slightly) Affect: Other (guarded) Thought Process & Associations: Intact, Linear Thought Content: Preoccupations (focus of discharge) Hallucination Type: None Delusion Type: None Suicidal Ideation: No Suicidal Plan: No Suicidal Intention: No Homicidal Ideation: No Homicidal Plan: No Homicidal Intention: No Insight: Poor Judgment: Poor Results Labs Date/Time Source Procedure Growth Status 10/15/17 18:46 Urine Random Urine Urine Culture - Final 50-100,000 CFU/ML MIXED GRAM POSITIVE... Complete Vitals/IOs Vital Signs Date Time Temp Pulse Resp B/P (MAP) Pulse Ox O2 Delivery O2 Flow Rate FiO2 10/29/17 08:33 136/61 (86) 10/29/17 05:49 97.1 88 16 99 Intake and Output 10/29/17 10/29/17 10/30/17 08:00 16:00 00:00 Intake Total 0 ml Balance 0 ml Assessment & Plan Problem List: (1) Dementia of Alzheimer's type with behavioral disturbance ICD Codes: G30.9 - Alzheimer's disease, unspecified; F02.81 - Dementia in other diseases classified elsewhere with behavioral disturbance (2) OTHER ALZHEIMER'S DISEASE ICD Codes: G30.8 - OTHER ALZHEIMER'S DISEASE Assessment & Plan Patient at this time continues to be alert and oriented only to person, has not had any episodes of agitation but as noted to be inconsistent with medications as well as being. Patient requires a lot of encouragement for the same. Patient been refusing lab work but was encouraged for compliance today which she agreed. We'll order CBC, BMP, LFTs for today. Continue to encourage patient to maintain compliance of medication as well as with meals. Discharge planning in progress Justification for Cont. Inpt. At risk for further decompensation at lower level of care Discharge Planning Patient at discharge nursing facility once one is acquired Shaheen Tee MD Oct 29, 2017 09:36
[2017-10-29 15:22] LABS: AUTOMATED NEUTROPHIL # 4.4 TH/MM3 (1.8-7.7); BASOPHIL % 0.7 % (0.0-2.0); EOSINOPHIL # 0.1 TH/MM3 (0-0.4); EOSINOPHIL % 1.3 % (0.0-4.0); HEMATOCRIT 43.3 % (35.0-46.0); HEMOGLOBIN 14.4 GM/DL (11.6-15.3); LYMPHOCYTE # 1.7 TH/MM3 (1.0-4.8); MEAN CORPUSCULAR HEMOGLOBIN 29.7 PG (27.0-34.0); MEAN CORPUSCULAR HGB CONC 33.3 % (32.0-36.0); MEAN PLATELET VOLUME 9.3 FL (7.0-11.0); MONO % 6.4 % (0.0-8.0); MONOCYTE # 0.4 TH/MM3 (0-0.9); NEUT % 65.6 % (16.0-70.0); PLATELET COUNT 168 TH/MM3 (150-450); RED BLOOD COUNT 4.86 MIL/MM3 (4.00-5.30); RED CELL DISTRIBUTION WIDTH 14.2 % (11.6-17.2); WHITE BLOOD COUNT 6.7 TH/MM3 (4.0-11.0)
[2017-10-29 15:58] LABS: ALBUMIN 3.4 GM/DL (3.4-5.0); BICARBONATE 26.8 MEQ/L (21.0-32.0); CREATININE 1.14 MG/DL (0.50-1.00); DIRECT BILIRUBIN ADULT 0.1 MG/DL (0.0-0.2)
[2017-10-29 16:00] LABS: INDIRECT BILIRUBIN 0.2 MG/DL (0.0-0.8); TOTAL BILIRUBIN ADULT 0.3 MG/DL (0.2-1.0); TOTAL PROTEIN 7.3 GM/DL (6.4-8.2)
[2017-10-29 18:32] VITALS: BP 133/60; PULSE 76; RESP 16; TEMP 97.5; O2SAT 95
[2017-10-29] MEDS: diphenhydrAMINE HCL 50 MG CAP - HS PRN PO (20:49)
[2017-10-29] MEDS: NAMZARIC PO SCH (20:51)
[2017-10-30 05:56] VITALS: BP 120/54; PULSE 72; RESP 18; O2SAT 98
[2017-10-30] MEDS: QUEtiapine FUMARATE 25 MG TAB PO SCH ×3 (09:00→21:00)
[2017-10-30] MEDS: amLODIPine BESYLATE 5 MG TAB PO SCH (09:00)
--- NOTE | 2017-10-30 11:14 | HHI.PYPN ---
Subjective Remarks Patient seen for follow-up, chart reviewed. Discussion she staff reported the patient ate dinner last evening noted to be eating more now and also shower today. Patient was found lying in hospital bed, cooperative in casual clothing. Patient states that she is feeling "alright" encouraged to eat and drink more which she agreed to. Patient denies any physical complaints at this time. Recent lab work showed normal chemistries aside from slightly elevated creatinine have been trending down and normal CBC. Patient this time reports of her being "all right" denies SI, HI, AVH or delusions at this time. Review of Systems Except as stated in HPI: all other systems reviewed are Neg Mental Status Examination Appearance: Appropriate Consciousness: Alert Orientation: Person Speech: Unremarkable, Other (low-volume) Language: Adequate Fund of Knowledge: Inadequate Attention and Concentration: Inadequate Memory: Impaired Mood: Appropriate Affect: Other (guarded) Thought Process & Associations: Intact, Linear Thought Content: Appropriate Hallucination Type: None Delusion Type: None Suicidal Ideation: No Suicidal Plan: No Suicidal Intention: No Homicidal Ideation: No Homicidal Plan: No Homicidal Intention: No Insight: Poor Judgment: Poor Results Labs Labs reviewed Test 10/29/17 14:39 White Blood Count 6.7 TH/MM3 Red Blood Count 4.86 MIL/MM3 Hemoglobin 14.4 GM/DL Hematocrit 43.3 % Mean Corpuscular Volume 89.0 FL Mean Corpuscular Hemoglobin 29.7 PG Mean Corpuscular Hemoglobin Concent 33.3 % Red Cell Distribution Width 14.2 % Platelet Count 168 TH/MM3 Mean Platelet Volume 9.3 FL Neutrophils (%) (Auto) 65.6 % Lymphocytes (%) (Auto) 26.0 % Monocytes (%) (Auto) 6.4 % Eosinophils (%) (Auto) 1.3 % Basophils (%) (Auto) 0.7 % Neutrophils # (Auto) 4.4 TH/MM3 Lymphocytes # (Auto) 1.7 TH/MM3 Monocytes # (Auto) 0.4 TH/MM3 Eosinophils # (Auto) 0.1 TH/MM3 Basophils # (Auto) 0.0 TH/MM3 CBC Comment DIFF FINAL Differential Comment Blood Urea Nitrogen 29 MG/DL Creatinine 1.14 MG/DL Random Glucose 78 MG/DL Total Protein 7.3 GM/DL Albumin 3.4 GM/DL Calcium Level 9.0 MG/DL Alkaline Phosphatase 70 U/L Aspartate Amino Transf (AST/SGOT) 22 U/L Alanine Aminotransferase (ALT/SGPT) 20 U/L Total Bilirubin 0.3 MG/DL Direct Bilirubin 0.1 MG/DL Sodium Level 139 MEQ/L Potassium Level 4.0 MEQ/L Chloride Level 106 MEQ/L Carbon Dioxide Level 26.8 MEQ/L Anion Gap 6 MEQ/L Estimat Glomerular Filtration Rate 45 ML/MIN Indirect Bilirubin 0.2 MG/DL Date/Time Source Procedure Growth Status 10/15/17 18:46 Urine Random Urine Urine Culture - Final 50-100,000 CFU/ML MIXED GRAM POSITIVE... Complete Vitals/IOs Vital Signs Date Time Temp Pulse Resp B/P (MAP) Pulse Ox O2 Delivery O2 Flow Rate FiO2 10/30/17 05:56 72 18 120/54 (76) 98 10/29/17 18:32 97.5 Intake and Output 10/30/17 10/30/17 10/30/17 07:59 15:59 23:59 Intake Total 0 ml Balance 0 ml Assessment & Plan Problem List: (1) Dementia of Alzheimer's type with behavioral disturbance ICD Codes: G30.9 - Alzheimer's disease, unspecified; F02.81 - Dementia in other diseases classified elsewhere with behavioral disturbance (2) OTHER ALZHEIMER'S DISEASE ICD Codes: G30.8 - OTHER ALZHEIMER'S DISEASE Assessment & Plan Patient this time now noted to have improvement and by mouth intake as well as improvement in maintenance of personal hygiene. Patient to continue current treatment, continue to encourage nutritional intake, maintenance of personal hygiene and participation in groups and activities while on the unit. Continue recommendations as per primary medical team. Patient to continue physical therapy. Discharge planning in progress Justification for Cont. Inpt. At risk for further decompensation if at lower level of care Discharge Planning Patient was discharged to nursing facility Shaheen Tee MD Oct 30, 2017 11:14
[2017-10-30] MEDS: ENOXAPARIN SODIUM 40 MG/0.4 ML SYRINGE SQ SCH (11:37)
[2017-10-30 18:00] VITALS: BP 151/61; PULSE 91; RESP 18; TEMP 97.4; O2SAT 97
[2017-10-30] MEDS: NAMZARIC PO SCH (21:00)
[2017-10-31 05:42] VITALS: BP 103/51; PULSE 72; RESP 17; TEMP 97.8; O2SAT 98
[2017-10-31] MEDS: QUEtiapine FUMARATE 25 MG TAB PO SCH (10:05)
[2017-10-31] MEDS: amLODIPine BESYLATE 5 MG TAB PO SCH (10:05)
[2017-10-31] MEDS: ENOXAPARIN SODIUM 40 MG/0.4 ML SYRINGE SQ SCH (12:11)
[2017-10-31] MEDS ORDERED: AMLO5 PO (12:55)
[2017-10-31] MEDS ORDERED: SERO25TA PO (12:55)
--- NOTE | 2017-10-31 13:58 | HHI.DS ---
Psychiatry Discharge Summary Inpatient Psychiatric care?: Yes Advance Directive: No Reason Not Provided: Due to Patient Condition Mental Health AdvanceDirective: No Health Care Proxy: No Admission Admission Date Oct 15, 2017 at 22:09 Admission Diagnosis: (1) Dementia of Alzheimer's type with behavioral disturbance ICD Code: G30.9 - Alzheimer's disease, unspecified; F02.81 - Dementia in other diseases classified elsewhere with behavioral disturbance Brief History Patient is a 87-year-old woman, domiciled with caregivers, past psychiatric history of Alzheimer's dementia, unknown previous psychiatric consultations suicide attempts or self-injurious behavior but as per chart prior ED visit on 05/2017 for similar presentation who was brought in under [facility] act from [place] stating patient was combative with visiting home nurses and transferred to the inpatient psychiatry for further evaluation and management. As per ED note patient reported no complaints but that the care provider, power of employment law attorney, stated the patient has been "escaping" from her house and walking [place] a highway at one point. It was noted in the chart that the family had written refusing antipsychotics until recently and had not been taking medications for the past 23 days. Patient also was provided ETO of Ativan IM in the ER and was recommended to start Macrobid 100 mg by mouth twice a day for 7 days for suspicion of UTI. Patient was found in the hallway attempting to exit the unit, banging on doorways any screaming as per nursing report. Patient was provided with ETO of 0.5 mg of Ativan IM and recent was redirected back to her room and was able to lay down. Patient noted to be alert and oriented only to person, noted to have nonsensical statements stating that "there is nothing here, they're all rotten". Patient continued to be irritable but appeared that medication was titrated to effect and was able to lay down and go to sleep. Prior to falling asleep if she was able to take first dose of Macrobid for UTI. As per chart patient was also on Memantine- Donepezil (28-10mg) by mouth at bedtime. The patient was seen today for psychiatric evaluation in second opinion. The patient was found wandering in the [place]quez, trying to elope from the unit, very disorganized, restless agitated, difficult to redirect, no answering to my questions. No able to provide any meaningful information for the evaluation. As per nurse in charge and as per conversation with Dr. Tee the patient has been this disorganized and agitated now the whole day and this is the reason the patient needs to be in the hospital for stabilization and safety. Tobacco Use In Past 30 Days: Cognitive Impairment Alcohol Use: Never Hospital Course Patient is a 87-year-old woman, domiciled with caregivers, past psychiatric history of Alzheimer's dementia, unknown previous psychiatric consultations suicide attempts or self-injurious behavior but as per chart prior ED visit on 05/2017 for similar presentation who was brought in under [facility] act from [place] stating patient was combative with visiting home nurses and transferred to the inpatient psychiatry for further evaluation and management. Patient was started on macrobid 100mg PO BID for UTI, quetiapine 12.5mg PO BID, continued on amlodipine 5mg PO daily which she responded well to treatment, was noted to be irritable, attempting to elope the unit initially, noted with poor nutritional intake and inconsistent with medications. Patient later began to improve on eating and drinking as well as comply with treatment but required assistance and encouragement throughout hospital stay. Patient also required assistance showering. Patient began to become more cooperative with staff, no behavioral dyscontrol, continued to have confusion being alert and oriented only to person and at times to place; generally noted to have stable mood. Upon discharge patient reported feeling alright denied any perceptual disturbances nor suicidal ideations or homicidal ideations. Patient agreed to continue treatment and follow up appointments for continuity of care. Patient advised to call 911 or go nearest ED in case of emergency. Patient agreed with plan. Patient will return back to the care of her primary caregiver. She will require home health services and constant supervision (27/05 ) due to her severe cognitive impairment and inability to care for herself. Results Blood Pressure 103 / 51 Vital Signs Date Time Temp Pulse Resp B/P (MAP) Pulse Ox O2 Delivery O2 Flow Rate FiO2 10/31/17 05:42 97.8 72 17 103/51 (68) 98 Laboratory Tests Test 10/29/17 14:39 Blood Urea Nitrogen 29 MG/DL (7-18) Creatinine 1.14 MG/DL (0.50-1.00) Estimat Glomerular Filtration Rate 45 ML/MIN (>89) Laboratory Results Test 10/16/17 12:50 Cholesterol Level 256 MG/DL (120-200) HDL Cholesterol 101.2 MG/DL (40.0-60.0) Hemoglobin A1c 5.4 % (4.3-6.0) LDL Cholesterol 132 MG/DL (0-99) Triglycerides Level 116 MG/DL (42-150) Summary of Procedures none Pending results at discharge: No Medications # of Antipsychotic meds at D/C: 1 Approp Antipsych med options 1 - Minimum of three failed multiple trials of monotherapy. 2 - Documented plan to taper to monotherapy due to previous use of multiple meds OR cross-taper in progress at D/C. 3 - Documentation of augmentation of Clozapine. 4 - Justification other than those listed in allowable values 1-3, document here : Discharge Discharge Date: Oct 31, 2017 Discharge Diagnosis: (1) Dementia of Alzheimer's type with behavioral disturbance ICD Code: G30.9 - Alzheimer's disease, unspecified; F02.81 - Dementia in other diseases classified elsewhere with behavioral disturbance Pt Condition on Discharge: Stable Discharge Disposition: Discharge Home Discharge Instructions Diet Instructions: Heart Healthy Diet Activities you can perform: Regular-No Restrictions Discharge Time > 30 minutes Mental Status Examination Appearance: Appropriate Consciousness: Alert Orientation: Person Speech: Unremarkable, Other (low-volume) Language: Adequate Fund of Knowledge: Inadequate Attention and Concentration: Inadequate Memory: Impaired Mood: Appropriate Affect: Other (guarded) Thought Process & Associations: Intact, Linear Thought Content: Appropriate Hallucination Type: None Delusion Type: None Suicidal Ideation: No Suicidal Plan: No Suicidal Intention: No Homicidal Ideation: No Homicidal Plan: No Homicidal Intention: No Insight: Poor Judgment: Poor Discharge/Advance Care Plan Health Problems: (1) Dementia of Alzheimer's type with behavioral disturbance (2) OTHER ALZHEIMER'S DISEASE Goals to promote your health * To prevent worsening of your condition and complications * To maintain your health at the optimal level Directions to meet your goals Take your medications as prescribed Follow your dietary instruction Follow activity as directed Keep your appointments as scheduled Take your immunizations and boosters as scheduled If your symptoms worsen call your PCP, if no PCP go to Urgent Care Center or Emergency Room For 24 questions related to your inpatient stay or results of tests pending at discharge, please contact Dr. Shaheen Tee at Smoking is Dangerous to Your Health. Avoid second hand smoking Shaheen Tee MD Oct 31, 2017 13:58
== END 2017-10-31 14:55 | disposition home or self-care (01) | DRG 57 ==
LOC: NEPD 09:48 → NEDA 22:09 → H4EA 10-16 → H250 10-23 22:00 → H4EA 10-29 15:47
PROVIDERS: ADMIT Student in an Organized Health Care Education/Training Program; ATTEND Student in an Organized Health Care Education/Training Program
DX: G30.9 Alzheimer's disease, unspecified (principal); F02.81 Dementia in other diseases classified elsewhere, unspecified severity, with behavioral disturbance; I10 Essential (primary) hypertension; R82.71 Bacteriuria; Z91.14 Patient's other noncompliance with medication regimen; Z91.83 Wandering in diseases classified elsewhere
CPT/HCPCS: 80048; 80061; 80076; 80307; 81001; 83036; 85025; 87086; 96372; J1630; J1650; J2060; Q0163